=== PATIENT | male | born 1980 | race Caucasian/White ===

== ENCOUNTER → 2016-10-07 | Outpatient (REF) | payer OTHER | LOC: M SFHCCLAY 10:36 | PROVIDERS: ATTEND Family Medicine | DX: L02.91 Cutaneous abscess, unspecified (principal) ==

== ENCOUNTER 2017-04-26 00:04 | Emergency (ER) | payer OTHER | END 2017-04-26 01:32 | disposition home or self-care (01) | LOC: M ED 00:04 | DX: F10.220 Alcohol dependence with intoxication, uncomplicated (principal); K21.9 Gastro-esophageal reflux disease without esophagitis; F41.9 Anxiety disorder, unspecified; Z87.891 Personal history of nicotine dependence; Z79.899 Other long term (current) drug therapy | CPT/HCPCS: 99284 ==

== ENCOUNTER → 2018-03-30 | Outpatient (REF) | payer OTHER ==
[~2018-03-30] MED LIST: DIPH25CA PO; OMEP20CA3; SERT-138
[2018-03-30 11:56] LABS: ALBUMIN 4.2 GM/DL (3.2-5.2); ALT/SGPT 162 U/L (12-78); BILIRUBIN,TOTAL 1.3 MG/DL (0.2-1.0); BLOOD UREA NITROGEN 16 MG/DL (7-18); CALCIUM LEVEL 9.5 MG/DL (8.5-10.1); CARBON DIOXIDE LEVEL 30 MEQ/L (21-32); CHLORIDE LEVEL 102 MEQ/L (98-107); CHOLESTEROL LEVEL 210 MG/DL (<200); CREATININE FOR GFR 1.05 MG/DL (0.70-1.30); GLOMERULAR FILTRATION RATE > 60.0 (>60); GLUCOSE, FASTING 123 MG/DL (70-100); HDL CHOLESTEROL 50 MG/DL (>40); LDL CHOLESTEROL 139 MG/DL (<100); NON-HDL-C 160 MG/DL; POTASSIUM SERUM 4.5 MEQ/L (3.5-5.1); SODIUM LEVEL 139 MEQ/L (136-145); TOTAL PROTEIN 7.8 GM/DL (6.4-8.2); TRIGLYCERIDES LEVEL 106 MG/DL (<150)
== END ==
LOC: M SFHCCLAY 08:15
PROVIDERS: ATTEND Family Medicine
DX: Z00.01 Encounter for general adult medical examination with abnormal findings (principal); Z13.220 Encounter for screening for lipoid disorders; Z13.1 Encounter for screening for diabetes mellitus

== ENCOUNTER → 2018-03-31 | Outpatient (REF) | payer OTHER ==
[2018-04-01 11:27] LABS: HEMATOCRIT 48.9 % (42.0-52.0); HEMOGLOBIN 17.2 g/dl (13.5-17.5); MEAN CORPUSCULAR HEMOGLOBIN 31.7 pg (27.0-33.0); MEAN CORPUSCULAR HGB CONC 35.2 g/dl (32.0-36.5); MEAN CORPUSCULAR VOLUME 90.1 fl (80.0-96.0); PLATELET COUNT, AUTOMATED 226 10^3/uL (150-450); RED BLOOD COUNT 5.43 10^6/uL (4.30-6.10); WHITE BLOOD COUNT 5.1 10^3/uL (4.0-10.0)
[2018-04-01 11:30] LABS: ALBUMIN 4.5 GM/DL (3.2-5.2); ALT/SGPT 154 U/L (12-78); BILIRUBIN,DIRECT 0.3 MG/DL (0.0-0.2); BILIRUBIN,TOTAL 1.1 MG/DL (0.2-1.0); IRON (FE) 110 UG/DL (65-175); PERCENT SATURATION 23.5 % (19.7-50.0); TOTAL IRON BINDING CAPACITY 469 UG/DL (250-450); TOTAL PROTEIN 7.9 GM/DL (6.4-8.2)
[2018-04-01 11:47] LABS: HEMOGLOBIN A1c 5.6 %
[2018-04-01 11:52] LABS: HEPATITIS B SURFACE ANTIGEN NEGATIVE (NEGATIVE)
[2018-04-01 12:19] LABS: HEPATITIS C VIRUS ABY INDEX 0.1 INDEX (<0.8)
[2018-04-01 12:20] LABS: HEPATITIS B CORE ANTIBODY IGM NEGATIVE (NEGATIVE)
[2018-04-01 12:22] LABS: HEPATITIS A ANTIBODY IGM NEGATIVE (NEGATIVE)
== END ==
LOC: M SFHCCLAY 14:58
PROVIDERS: ATTEND Family Medicine
DX: R73.01 Impaired fasting glucose (principal); R74.8 Abnormal levels of other serum enzymes

== ENCOUNTER 2018-06-19 22:52 | Emergency (ER) | payer OTHER ==
[~2018-06-19] VITALS: Ht 185.4 cm; Wt 121.0 kg
[2018-06-19] MEDS ORDERED: KETOROLAC 30 MG/ML VIAL (J1885) IV ONE (23:30)
[2018-06-19] MEDS ORDERED: NS 1,000 ML IV ONE (23:30)
[2018-06-19 23:55] LABS: BASO # 0.1 10^3/uL (0.0-0.2); BASO % 1.1 % (0.0-1.0); EOS # 0.2 10^3/uL (0.0-0.50); EOS % 4.3 % (0.0-3.0); HEMATOCRIT 45.9 % (42.0-52.0); HEMOGLOBIN 16.2 g/dl (13.5-17.5); LYMPH # 0.9 10^3/uL (1.5-4.5); LYMPH % 19.6 % (24.0-44.0); MEAN CORPUSCULAR HEMOGLOBIN 31.4 pg (27.0-33.0); MEAN CORPUSCULAR HGB CONC 35.3 g/dl (32.0-36.5); MONO # 0.7 10^3/uL (0.0-0.8); MONO % 14.9 % (0.0-5.0); NEUTROPHILS # 2.5 10^3/uL (1.8-7.7); PLATELET COUNT, AUTOMATED 140 10^3/uL (150-450); RED BLOOD COUNT 5.16 10^6/uL (4.30-6.10); WHITE BLOOD COUNT 4.4 10^3/uL (4.0-10.0)
[2018-06-20 00:21] LABS: BLOOD UREA NITROGEN 7 MG/DL (7-18); CALCIUM LEVEL 8.5 MG/DL (8.5-10.1); CARBON DIOXIDE LEVEL 27 MEQ/L (21-32); CHLORIDE LEVEL 101 MEQ/L (98-107); CPK CREATINE PHOSPHOKINASE 275 U/L (39-308); CREATININE FOR GFR 0.72 MG/DL (0.70-1.30); ETHYL ALCOHOL (ETHANOL) 0.294 % (0.000-0.010); GLOMERULAR FILTRATION RATE > 60.0 (>60); GLUCOSE, FASTING 90 MG/DL (70-100); MB/CK RELATIVE INDEX 1.45 (< OR =4); POTASSIUM SERUM 3.7 MEQ/L (3.5-5.1); SODIUM LEVEL 136 MEQ/L (136-145); TROPONIN I < 0.02 NG/ML (< 0.10)
[2018-06-20] MEDS ORDERED: CYCL5TAB PO (01:43)
[2018-06-20] MEDS ORDERED: NAPR-50 PO (01:43)
[2018-06-20 01:56] VITALS: BP 113/59
--- NOTE | 2018-06-20 03:52 | REP ---
Clinical: Acute chest pain . Comparison: None . Findings: The mediastinum and cardiac silhouette are stable and within normal limits for portable technique. The lung canseco are clear without acute consolidation, effusion, or pneumothorax. Skeletal structures are intact. Impression: No acute cardiopulmonary process appreciated. Electronically Signed by Logan Chandler MD 06/20/2018 03:43 A
--- NOTE | 2018-06-20 06:33 | ECGEPIP ---
Stationary ECG Study [facility] - ED Test Date: 2018-06-19 Pat Name: MELANIE REYES Department: Room: - Gender: M [employer] Analyst: [place] : 1980 Requested By: MARIA GUADALUPE Jha Order Number: [id number] Reading MD: Jude Mckeon Measurements Intervals Lerna Rate: 72 P: -7 KS: 183 QRS: -11 QRSD: 109 T: -4 QT: 419 QTc: 459 Interpretive Statements SINUS RHYTHM NO PRIORS FOR COMPARISON Electronically Signed On 06-20-2018 6:33:18 EDT by Jude Mckeon
== END 2018-06-20 01:58 | disposition home or self-care (01) ==
LOC: M ED 22:52
DX: R07.89 Other chest pain (principal); M54.9 Dorsalgia, unspecified; F10.129 Alcohol abuse with intoxication, unspecified; R06.02 Shortness of breath
CPT/HCPCS: 36415; 71045; 80048; 82550; 82553; 85025; 93005; 93041; 94760; 96361; 96374; 99285; G0480; J1885

== ENCOUNTER → 2018-07-15 | Outpatient (REF) | payer OTHER ==
[~2018-07-15] MED LIST changes: +CYCL5TAB PO; +NAPR-837 PO
[2018-07-15 18:03] LABS: APPEARANCE, URINE CLEAR (CLEAR); BACTERIA, URINE AUTO NEGATIVE (NEGATIVE); BILIRUBIN, URINE AUTO NEGATIVE (NEGATIVE); BLOOD, URINE BLOOD NEGATIVE (NEGATIVE); COLOR, URINE STRAW (YELLOW); GLUCOSE, URINE (UA) AUTO NEGATIVE (NEGATIVE); KETONE, URINE AUTO NEGATIVE (NEGATIVE); LEUKOCYTE ESTERASE, URINE AUTO NEGATIVE (NEGATIVE); NITRITE, URINE AUTO NEGATIVE (NEGATIVE); PROTEIN, URINE AUTO NEGATIVE (NEGATIVE); RBC, URINE AUTO 0 /HPF (0-3); SPECIFIC GRAVITY URINE AUTO 1.003 (1.002-1.035); SQUAMOUS EPITHELIAL CELL UR AU 0 /HPF (0-6); UROBILINOGEN, URINE AUTO 0.2 mg/dL (0.0-2.0); WBC, URINE AUTO 0 /HPF (0-3)
[2018-07-15 18:12] LABS: BASO % 0.9 % (0.0-1.0); EOS # 0.1 10^3/uL (0.0-0.50); EOS % 2.8 % (0.0-3.0); HEMATOCRIT 46.9 % (42.0-52.0); HEMOGLOBIN 16.3 g/dl (13.5-17.5); LYMPH # 0.5 10^3/uL (1.5-4.5); LYMPH % 11.2 % (24.0-44.0); MEAN CORPUSCULAR HEMOGLOBIN 31.2 pg (27.0-33.0); MEAN CORPUSCULAR HGB CONC 34.8 g/dl (32.0-36.5); MEAN CORPUSCULAR VOLUME 89.7 fl (80.0-96.0); MONO # 0.5 10^3/uL (0.0-0.8); MONO % 12.4 % (0.0-5.0); NEUTROPHILS % 68.8 % (36.0-66.0); PLATELET COUNT, AUTOMATED 178 10^3/uL (150-450); RED BLOOD COUNT 5.23 10^6/uL (4.30-6.10); WHITE BLOOD COUNT 4.4 10^3/uL (4.0-10.0)
[2018-07-15 18:45] LABS: ALBUMIN 4.3 GM/DL (3.2-5.2); ALT/SGPT 207 U/L (12-78); BILIRUBIN,TOTAL 1.2 MG/DL (0.2-1.0); BLOOD UREA NITROGEN 12 MG/DL (7-18); CALCIUM LEVEL 9.3 MG/DL (8.5-10.1); CARBON DIOXIDE LEVEL 27 MEQ/L (21-32); CHLORIDE LEVEL 102 MEQ/L (98-107); CREATININE FOR GFR 0.84 MG/DL (0.70-1.30); GLOMERULAR FILTRATION RATE > 60.0 (>60); GLUCOSE, FASTING 102 MG/DL (70-100); POTASSIUM SERUM 4.3 MEQ/L (3.5-5.1); SODIUM LEVEL 138 MEQ/L (136-145); TOTAL PROTEIN 7.9 GM/DL (6.4-8.2)
[2018-07-15 18:52] LABS: FREE T4 0.64 NG/DL (0.76-1.46); THYROID STIMULATING HORMONE 1.93 uIU/ML (0.358-3.740)
[2018-07-15 19:31] LABS: HIV 1&2 SCREEN CENTAUR NEGATIVE (NEGATIVE)
== END ==
LOC: M SFHCCLAY 10:35
PROVIDERS: ATTEND Family Medicine
DX: R59.0 Localized enlarged lymph nodes (principal)

== ENCOUNTER → 2018-07-29 | Outpatient (CLI) | payer OTHER ==
[~2018-07-29] MED LIST changes: +ACAM0.05 PO; +LABE10TAB PO
[2018-07-29 19:10] LABS: INR 0.92; PROTHROMBIN TIME 12.5 SECONDS (12.1-14.4)
[2018-08-02 00:08] LABS: ANTI-SMOOTH MUSCLE ANTIBODY 15 Units (0-19)
[2018-08-02 14:14] LABS: CERULOPLASMIN 27.5 mg/dL (16.0-31.0)
== END ==
LOC: M SMT 14:18
PROVIDERS: ATTEND Internal Medicine Pulmonary Disease
DX: R59.0 Localized enlarged lymph nodes (principal)

== ENCOUNTER 2018-08-09 08:50 | Day surgery (SDC) | payer OTHER ==
[~2018-08-09] VITALS: Ht 188 cm; Wt 116.9 kg
[~2018-08-09 08:50] MED LIST changes: +ALBUTEROL SULFATE 2.5 MG/0.5 ML INH NEB SOLN NEB ONE; +D5W 1,000 ML IV SCH; +LIDOCAINE 4% INJ 5 ML AMP NEB ONE
[2018-08-09] MEDS ORDERED: THROMBIN SOLN 5,000 UNITS VIAL As Ordered ONE (09:49)
[2018-08-09] MEDS ORDERED: EPINEPHrine 1MG/10ML SYRINGE 1.5IN As Ordered ONE (09:50)
[2018-08-09] MEDS ORDERED: LIDOCAINE 1% MDV 20ML VIAL As Ordered ONE (09:50)
[2018-08-09] MEDS ORDERED: CETACAINE SPRAY 5GM As Ordered ONE (09:50)
[2018-08-09] MEDS ORDERED: LIDOCAINE VISCOUS 2% SOLN 15ML UDC As Ordered ONE (09:50)
[2018-08-09] MEDS ORDERED: LIDOCAINE 4% TOPICAL SOLN 50 ML BTL As Ordered ONE (10:10)
[2018-08-09] MEDS ORDERED: PROPOFOL 200 MG/20 ML VIAL As Ordered ONE (10:59)
[2018-08-09] MEDS ORDERED: MIDAZOLAM INJ 2 MG/2 ML VIAL (J2250) As Ordered ONE (10:59)
[2018-08-09] MEDS ORDERED: SUGAMMADEX SODIUM 500 MG/5 ML VIAL (BRIDION) As Ordered ONE (10:59)
[2018-08-09] MEDS ORDERED: fentaNYL 100 MCG/2 ML INJECTION (J3010) As Ordered ONE (10:59)
[2018-08-09] MEDS ORDERED: ONDANSETRON 4MG/2ML VIAL (J2405) As Ordered ONE (10:59)
[2018-08-09] MEDS ORDERED: ROCURONIUM BROMIDE 50 MG/5 ML VIAL As Ordered ONE (10:59)
[2018-08-09] MEDS ORDERED: dexameTHASONE 4 MG/ML 1ML VIAL (J1100) As Ordered ONE (10:59)
[2018-08-09] MEDS ORDERED: METOCLOPRAMIDE INJ 10MG/2ML VIAL (J2765) As Ordered ONE (11:56)
[2018-08-09] MEDS ORDERED: METOCLOPRAMIDE INJ 10MG/2ML VIAL (J2765) IV PRN (12:00)
[2018-08-09] MEDS ORDERED: fentaNYL 100 MCG/2 ML INJECTION (J3010) IV PRN (12:00)
[2018-08-09] MEDS ORDERED: NORCO, ANEXSIA 5/325MG TABLET (HYDROcodone/ACETAMINOPHEN) PO PRN (12:00)
--- NOTE | 2018-08-09 12:02 | ROOR ---
Patient Name: Coy Hernandez Procedure Date: 08/09/2018 10:08 AM Date of : 1980 Admit Type: Outpatient Age: 38 Note Status: Finalized Attending MD: Monse Denise MD Procedure: Bronchoscopy Indications: Bilateral hilar lymphadenopathy, Mediastinal adenopathy, Paratracheal adenopathy Providers: Monse Denise MD (Doctor) Referring MD: 1. No Referring Physician 1. No Referring Physician, Admin. (Referring MD) Requesting Physician: Medicines: General Anesthesia, Cetacaine topical Complications: No immediate complications Procedure: Pre-Anesthesia Assessment: - Prior to the procedure, a History and Physical was performed, and patient medications and allergies were reviewed. The patient's tolerance of previous anesthesia was also reviewed. The risks and benefits of the procedure and the sedation options and risks were discussed with the patient. All questions were answered, and informed consent was obtained. Prior Anticoagulants: The patient has taken no previous anticoagulant or antiplatelet agents. ASA Grade Assessment: II - A patient with mild systemic disease. After reviewing the risks and benefits, the patient was deemed in satisfactory condition to undergo the procedure. The Bronchoscope was introduced through the mouth, via the endotracheal tube (the patient was intubated for the procedure) and advanced to the tracheobronchial tree of both lungs. The procedure was accomplished without difficulty. The patient tolerated the procedure well. Findings: The endotracheal tube is in good position. The visualized portion of the trachea is of normal caliber. The aleksander is sharp. The tracheobronchial tree was examined to at least the first subsegmental level. In the left upper lobe patient had seperate apical, anterior and posterior bronchial segments. In the right upper lobe patient had an anatomical variant with displaced apical bronchus vs supernumerary apical bronchus. Bronchial mucosa was normal; there were few areas of pitting, no endobronchial lesions were seen, and very scant secretions. An endobronchial ultrasound endoscope was utilized in order to assist with fine needle aspiration in the left and right paratracheal and subcarinal areas. Transbronchial needle aspirations of lymph nodes were performed in the left and right paratracheal and subcarinal areas using an Olympus EBUS-TBNA 21 gauge needle and sent for routine cytology and flow cytometry. The procedure was guided by ultrasound. Bronchoalveolar lavage was performed in the left upper lobe, in the right upper lobe and in the right lower lobe of the lung and sent for cell count, bacterial culture, and fungal & AFB analysis and cytology. The return was blood-tinged. There were no mucoid plugs in the return fluid. Impression: - Bilateral hilar lymphadenopathy - Mediastinal adenopathy - Paratracheal adenopathy - The airway examination was normal except for noted anatomical variations in RUL and CLAUDIA segmental bronchi. - Endobronchial ultrasound was performed. - A transbronchial needle aspiration was performed in subcarinal, right and left paratracheal lymph nodes - Bronchoalveolar lavage was performed in RUL, RLL and CLAUDIA Recommendation: - Follow up with bronchoscopist as previously scheduled. Attending Participation: I personally performed the entire procedure. Monse Denise MD 08/09/2018 12:01:59 PM Number of Addenda: 0 Note Initiated On: 08/09/2018 10:08 AM
[2018-08-09 12:24] VITALS: BP 133/88
--- NOTE | 2018-08-09 12:39 | REP ---
PORTABLE CHEST X-RAY: Single view. HISTORY: Postop evaluation. COMPARISON CHEST X-RAY: June 19, 2018. FINDINGS: There are linear opacities in the right perihilar region and left base consistent with fibrosis versus atelectasis. There is no evidence of pneumothorax on either side. No pleural effusion is seen. The heart is not enlarged. Mediastinal contours are unremarkable. IMPRESSION: Plate-like atelectasis versus linear fibrosis left base and right perihilar region. No evidence of pneumothorax. Electronically Signed by Jesus Rojas MD 08/09/2018 10:26 P
[2018-08-09 13:45] LABS: APPEARANCE CLEAR (CLEAR); COLOR COLORLESS (COLORLESS); SOURCE LEFT UPPER LOBE
[2018-08-09 14:21] LABS: APPEARANCE HAZY (CLEAR); COLOR PINK (COLORLESS); SOURCE RIGHT UPPER LOBE
== END 2018-08-09 12:50 | disposition home or self-care (01) ==
LOC: M SDC 08:50
PROVIDERS: ATTEND Internal Medicine Pulmonary Disease
DX: R91.8 Other nonspecific abnormal finding of lung field (principal); R59.0 Localized enlarged lymph nodes; I10 Essential (primary) hypertension; K21.9 Gastro-esophageal reflux disease without esophagitis; F41.9 Anxiety disorder, unspecified; F32.9 Major depressive disorder, single episode, unspecified; Z87.891 Personal history of nicotine dependence; K76.0 Fatty (change of) liver, not elsewhere classified; Z79.899 Other long term (current) drug therapy; R94.8 Abnormal results of function studies of other organs and systems
CPT/HCPCS: 31624; 31629; 31652; 71045; 87070; 87102; 87116; 87205; 87206; 88108; 88173; 88305; 88312; 88313; 89050; J1100; J2250; J2405; J3010

== ENCOUNTER 2018-11-04 11:49 | Day surgery (SDC) | payer OTHER ==
[~2018-11-04] VITALS: Ht 188 cm; Wt 119.3 kg
[~2018-11-04 11:49] MED LIST changes: -ALBUTEROL SULFATE 2.5 MG/0.5 ML INH NEB SOLN NEB ONE; -D5W 1,000 ML IV SCH; -DIPH25CA PO; +DIPH25CA32 PO; -LIDOCAINE 4% INJ 5 ML AMP NEB ONE; +NS 1,000 ML IV ONE; +OMEP1CAP73; -OMEP20CA3; +PRED20TA PO
[2018-11-04] MEDS ORDERED: NS 1,000 ML IV ONE (12:30)
[2018-11-04] MEDS ORDERED: LIDOCAINE 2% INJ 100 MG/5 ML SDV (FOR ANES.) As Ordered ONE (13:19)
[2018-11-04] MEDS ORDERED: propofoL 200 MG/20 ML VIAL As Ordered ONE ×2 (13:19→13:28)
--- NOTE | 2018-11-04 13:50 | ROOR ---
Patient Name: Coy Hernandez Procedure Date: 11/04/2018 1:17 PM Date of : 1980 Age: 38 Room: [facility] Gender: Male Note Status: Finalized Procedure: Upper GI endoscopy Indications: Suspected gastro-esophageal reflux disease Providers: Urbano Bass MD Referring MD: Laurie BUTT DO Requesting Provider: Medicines: Monitored Anesthesia Care Complications: No immediate complications. Procedure: Pre-Anesthesia Assessment: - Prior to the procedure, a History and Physical was performed, and patient medications and allergies were reviewed. The patient is competent. The risks and benefits of the procedure and the sedation options and risks were discussed with the patient. All questions were answered and informed consent was obtained. Patient identification and proposed procedure were verified by the physician, the nurse and the anesthesiologist in the procedure room. Mental Status Examination: alert and oriented. Airway Examination: normal oropharyngeal airway and neck mobility. Respiratory Examination: clear to auscultation. CV Examination: normal. Prophylactic Antibiotics: The patient does not require prophylactic antibiotics. Prior Anticoagulants: The patient has taken no previous anticoagulant or antiplatelet agents. ASA Grade Assessment: II - A patient with mild systemic disease. After reviewing the risks and benefits, the patient was deemed in satisfactory condition to undergo the procedure. The anesthesia plan was to use monitored anesthesia care (MAC). Immediately prior to administration of medications, the patient was re-assessed for adequacy to receive sedatives. The heart rate, respiratory rate, oxygen saturations, blood pressure, adequacy of pulmonary ventilation, and response to care were monitored throughout the procedure. The physical status of the patient was re-assessed after the procedure. The Endoscope was introduced through the mouth, and advanced to the second part of duodenum. The upper GI endoscopy was accomplished without difficulty. The patient tolerated the procedure well. Findings: LA Grade A (one or more mucosal breaks less than 5 mm, not extending between tops of 2 mucosal folds) esophagitis with no bleeding was found 38 to 40 cm from the incisors. Biopsies were taken with a cold forceps for histology. Verification of patient identification for the specimen was done by the physician and nurse using the patient's name, date and medical record number. Estimated blood loss was minimal. The Z-line was irregular and was found 40 cm from the incisors. Scattered moderate inflammation characterized by erythema and granularity was found in the gastric antrum. Biopsies were taken with a cold forceps for Helicobacter pylori testing. Multiple 8 mm sessile polyps with no stigmata of recent bleeding were found in the gastric body and in the gastric antrum. The duodenal bulb and second portion of the duodenum were normal. Impression: - LA Grade A reflux esophagitis. Rule out Kraus's esophagus. Biopsied. - Z-line irregular, 40 cm from the incisors. - Gastritis. Biopsied. - Multiple gastric polyps. - Normal duodenal bulb and second portion of the duodenum. Recommendation: - Patient has a contact number available for emergencies. The signs and symptoms of potential delayed complications were discussed with the patient. Return to normal activities tomorrow. Written discharge instructions were provided to the patient. - Resume previous diet. - Continue present medications. - Await pathology results. - Repeat upper endoscopy in 3 years for surveillance based on pathology results. - Follow an antireflux regimen. - Telephone GI clinic for pathology results in 2 weeks. - Return to primary care physician. Urbano Bass MD Urbano Bass MD 11/04/2018 1:49:58 PM Electronically signed by Urbano Bass MD Number of Addenda: 0 Note Initiated On: 11/04/2018 1:17 PM Estimated Blood Loss: Estimated blood loss was minimal.
[2018-11-04 14:00] VITALS: BP 128/69
== END 2018-11-04 14:11 | disposition home or self-care (01) ==
LOC: M OPP 11:49
PROVIDERS: ATTEND Internal Medicine Gastroenterology
DX: K21.0 Gastro-esophageal reflux disease with esophagitis (principal); K22.8 Other specified diseases of esophagus; K29.70 Gastritis, unspecified, without bleeding; K31.7 Polyp of stomach and duodenum

== ENCOUNTER 2019-04-28 21:46 | Inpatient (IN) | payer MEDICAID, OTHER ==
[~2019-04-28] VITALS: Ht 188 cm; Wt 120.5 kg
[~2019-04-28 21:46] MED LIST changes: -NS 1,000 ML IV ONE; -SERT-138; +SERT-138 PO
[2019-04-28 23:13] LABS: HEMATOCRIT 55.7 % (42.0-52.0); HEMOGLOBIN 17.8 g/dl (13.5-17.5); MEAN CORPUSCULAR HEMOGLOBIN 28.1 pg (27.0-33.0); PLATELET COUNT, AUTOMATED 211 10^3/uL (150-450); RED BLOOD COUNT 6.33 10^6/uL (4.30-6.10); WHITE BLOOD COUNT 5.8 10^3/uL (4.0-10.0)
[2019-04-28 23:37] LABS: AMPHETAMINES LEVEL URINE NEGATIVE (NEGATIVE); BARBITURATES URINE NEGATIVE (NEGATIVE); BENZODIAZEPINES URINE NEGATIVE (NEGATIVE); CANNABINOIDS URINE NEGATIVE (NEGATIVE); COCAINE METABOLITE URINE NEGATIVE (NEGATIVE); METHADONE URINE NEGATIVE (NEGATIVE); OPIATES URINE NEGATIVE (NEGATIVE); PHENCYCLIDINE URINE NEGATIVE (NEGATIVE)
[2019-04-29 00:02] LABS: ACETAMINOPHEN LEVEL < 2.0 UG/ML (10.0-30.0); ALBUMIN 4.6 GM/DL (3.2-5.2); ALT/SGPT 57 U/L (12-78); BILIRUBIN,DIRECT 0.4 MG/DL (0.0-0.2); BILIRUBIN,TOTAL 1.2 MG/DL (0.2-1.0); BLOOD UREA NITROGEN 6 MG/DL (7-18); CALCIUM LEVEL 8.8 MG/DL (8.5-10.1); CARBON DIOXIDE LEVEL 29 MEQ/L (21-32); CHLORIDE LEVEL 99 MEQ/L (98-107); CREATININE FOR GFR 0.77 MG/DL (0.70-1.30); ETHYL ALCOHOL (ETHANOL) 0.304 % (0.000-0.010); GLOMERULAR FILTRATION RATE > 60.0 (>60); GLUCOSE, FASTING 84 MG/DL (70-100); POTASSIUM SERUM 3.8 MEQ/L (3.5-5.1); SALICYLATE LEVEL 2.4 MG/DL (5.0-30.0); SODIUM LEVEL 135 MEQ/L (136-145); TOTAL PROTEIN 8.6 GM/DL (6.4-8.2)
[2019-04-29] MEDS ORDERED: THIAMINE 100 MG TAB PO SCH ×2 (09:00→21:00)
[2019-04-29] MEDS ORDERED: FOLIC ACID 1 MG TAB PO SCH (09:00)
[2019-04-29] MEDS ORDERED: MULTIVITAMINS/MINERALS THERAP 1 TAB PO SCH (09:00)
[2019-04-29] MEDS ORDERED: IBUPROFEN 400 MG TAB PO PRN (10:45)
[2019-04-29] MEDS ORDERED: traZODone 50 MG TAB PO PRN (10:45)
[2019-04-29] MEDS ORDERED: MAALOX 30 ML SUSP *UDC PO PRN ×2 (10:45→11:00)
[2019-04-29] MEDS ORDERED: MOM 30ML SUSPENSION UDC PO PRN ×2 (10:45→11:00)
[2019-04-29] MEDS ORDERED: LORazepam 2 MG TAB PO PRN ×2 (10:45)
[2019-04-29] MEDS ORDERED: HYDR-643 PO (11:25)
[2019-04-29] MEDS ORDERED: OMEP-221 PO (11:25)
[2019-04-29] MEDS: OMEPRAZOLE 20 MG CAP PO SCH ×2 (14:52→20:00)
[2019-04-29 15:45] VITALS: BP 165/100
[2019-04-29] MEDS: LORazepam 2 MG TAB PO PRN (16:02)
[2019-04-29 17:02] VITALS: BP 148/88
[2019-04-29 17:50] VITALS: BP 148/88
[2019-04-29 19:43] VITALS: BP 165/110
[2019-04-29] MEDS: THIAMINE 100 MG TAB PO SCH (20:00)
[2019-04-29] MEDS: LABETALOL 100 MG TAB PO SCH (20:00)
[2019-04-29] MEDS ORDERED: SERTRALINE 100 MG TAB PO SCH (21:00)
[2019-04-29] MEDS: traZODone 50 MG TAB PO PRN (21:18)
[2019-04-29 22:27] VITALS: BP 140/85
--- NOTE | 2019-04-29 22:32 | MHHPE ---
DATE OF ADMISSION: 04/29/2019 VITAL SIGNS: Blood pressure 148/88, pulse 100, temperature 99. CHIEF COMPLAINT: Feels depressed. SUBJECTIVE: He is 38 years old. He is . He and his are possibly going to divorce. They have four children. He has recently been staying with his parents. He has been depressed, increasingly so since the separation a few months ago, has bene increasingly distressed. Has difficulties with drinking, considerably so. Saybetsy attended rehabilitation in [place] in March, was there for about a month, [facility] as his [facility] lives there. He did not have any withdrawal symptoms from alcohol. He says that he has not had any to speak of in the past either. He says that he was okay for about a week and then felt anxious, picked up drinking again, and that pattern continued, including over and the New Year, intensified last few weeks to the point where he has been drinking first thing in the morning. He says that he does not think that he has had black outs. He has been feeling increasingly depressed and despondent, and says felt hopeless and yesterday thought of taking his own life. He says that he had been drinking at the time, had a rope around the rafter, says had a chair in place and was getting ready essentially to hang himself when his father walked in. He says that he was going to ask him for dinner, when he saw the patient in that state. The patient was brought to the hospital. He says that he remembers the journey, did not lose any consciousness, did not in fact have the rope around his neck. He says that he began thinking of his children, and wishes to continue for them. He has been feeling depressed. Says was less so when he was in rehab for about a month. Prior to that, says was free of alcohol for about 2 months, some time in the late summer, did not have a depressed mood but was anhedonic. Did not have much interest in previously pleasurable activities. Sleep was a bit erratic. No history consistent with hypomania, sujata, obsessions or compulsions. No posttraumatic stress disorder (PTSD). 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 No flashbacks. Says had difficulties with alcohol for several years, at least in his 20s, and that has continued. He has been on sertraline at 100 mg daily, prescribed by primary care, has been on this for quite a while and says was put on Campral when he was in [place] at rehab, but on 333 mg three times a day rather than the usual dose, which is double that. He said that it was something to do with insurance. He was due to increase it on his own recently. No history, as far as I am aware, of any suicide attempts. SUBSTANCE ABUSE HISTORY: As indicated above, has had a long period of difficulties with alcohol. Has been to rehab on two occasions, one was at [facility], this was when he was in his late 20s, says did not like the experience, left after about 16 days or so. The second rehab was the one he attended recently in [place]. MEDICAL HISTORY: He is treated for high blood pressure and is on labetalol. SOCIAL HISTORY: He lives with his parents, this is only since the last few months, after his separation from his . He and his have been together since their teens. The patient did not give any history of any abuse when growing up. 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 He says that he has been looking for work. He and his about 7 months ago, they have been together for the better part of their lives. He says that his drinking has consistently interfered with his marriage and his ability to work, particularly lately. He has been living with his parents, the past few months, and he increasingly considers himself a burden there. He says that this contributed to his thinking of killing himself. MENTAL STATUS EXAMINATION: He is neat. He is cooperative. Appears well nourished. There is no agitation. No psychomotor retardation. He is coherent. Affect is restricted in range but shows reactivity. He is vague on suicidal thoughts, no firm plans. No homicidal ideas or intents. No evidence of psychosis. Cognition is grossly intact. Judgment and insight are questionable. ASSESSMENT: 1. Other specified depressive disorder. 2. Rule out alcohol induced depressive disorder. 3. Alcohol use disorder. 4. Separation from . He has been significantly depressed, this is exacerbated by his use of alcohol. It seems that the depressed mood, clinically significant, pervades including when he is not drinking. PLAN: He is admitted to the inpatient psychiatry unit. We will place him on relevant precautions, including the Clinical [place] Withdrawal Assessment (CIWA) scale. After discussion of the advantages and disadvantages of doing so and alternatives, including switching antidepressants, his Zoloft is increased to 150 mg daily, I would suggest putting him on a sleep aid if needed. We will resume Campral but at 666 mg three times a day, which is the usual dose. He will be involved in individual, group and milieu therapy. We will look at obtaining collateral information. He will be discharged with followup once he is stable. I anticipate a 5 to 7 day stay. We met for 60 minutes.
[2019-04-30 06:16] VITALS: BP 125/90
[2019-04-30 06:17] VITALS: BP 125/90
[2019-04-30 09:00] VITALS: BP 136/84
[2019-04-30] MEDS ORDERED: FOLIC ACID 1 MG TAB PO SCH (09:00)
[2019-04-30] MEDS ORDERED: MULTIVITAMINS/MINERALS THERAP 1 TAB PO SCH (09:00)
[2019-04-30] MEDS: FOLIC ACID 1 MG TAB PO SCH (09:15)
[2019-04-30] MEDS: THIAMINE 100 MG TAB PO SCH ×2 (09:15→20:14)
[2019-04-30] MEDS: OMEPRAZOLE 20 MG CAP PO SCH ×2 (09:15→20:15)
[2019-04-30] MEDS: SERTRALINE HCL 50 MG TAB PO SCH (09:16)
[2019-04-30] MEDS: MULTIVITAMINS/MINERALS THERAP 1 TAB PO SCH (09:17)
[2019-04-30] MEDS: LABETALOL 100 MG TAB PO SCH ×2 (09:17→20:15)
[2019-04-30] MEDS: LORazepam 2 MG TAB PO PRN (09:20)
[2019-04-30] MEDS: ACAMPROSATE CALCIUM 333 MG TABLET (CAMPRAL) PO SCH ×3 (12:03→20:15)
--- NOTE | 2019-04-30 12:29 | HPEPDOC ---
[facility] Medical History & Physical Date of Admission Apr 30, 2019 Date of Service: Apr 30, 2019 History and Physical CHIEF COMPLAINT: Hospitalist consult for medical co-management. HISTORY OF PRESENT ILLNESS: 38 yo male admitted to [facility] for depressive disorder. Patient has no medical complaints this morning. Denies chest pain, shortness of breath, headaches, changes in vision, abdominal pain, N/V/D. PAST MEDICAL HISTORY: #HTN #EtOH abuse ALLERGIES: Please see below. REVIEW OF SYSTEMS: Negative except as per HPI. HOME MEDICATIONS: Please see below. PHYSICAL EXAMINATION: Vital Signs: See below General: NAD HEENT: NC/AT, EOMI, PERRL Lungs: CTA B/L Heart: +S1S2, RRR Abd: soft, NT, +BS Ext: no edema Neuro: no gross focal deficits Psych: AAOx3 LABORATORY DATA: See below. MICROBIOLOGY: Please see below. ASSESSMENT: 38 yo male admitted to [facility] for depressive disorder, medicine consult for co-management. #HTN - patient states he has been prescribed labetalol for some time - will continue #EtOH abuse - as per psych - monitor for withdrawal - folic/thiamine supplements #hyponatremia - repeat labs in am #polycythemia - repeat labs in am #hyperbilirubinemia - follow up liver profile in am Dispo: follow up with labs in am PLAN: 1. . Vital Signs Vital Signs Date Time Temp Pulse Resp B/P (MAP) Pulse Ox O2 Delivery O2 Flow Rate FiO2 04/30/19 09:17 90 136/84 04/30/19 06:17 99.2 16 04/29/19 17:50 100 Room Air Home Medications Scheduled Acamprosate Calcium (Acamprosate Calcium) 333 Mg Tablet.dr, 333 MG PO TID Labetalol HCl (Labetalol HCl) 100 Mg Tablet, 100 MG PO BID Omeprazole (Omeprazole) 40 Mg Capsule.dr, 40 MG PO DAILY Sertraline HCl (Sertraline HCl) 100 Mg Tab, 100 MG PO QHS Scheduled PRN Diphenhydramine HCl (Diphenhydramine HCl) 25 Mg Cap, 25 MG PO Q6H PRN for ITCHING Hydroxyzine HCl (Hydroxyzine HCl) 10 Mg Tablet, 10 MG PO TID PRN for ANXIETY/AGITATION Allergies Coded Allergies: No Known Allergies (Unverified , NONE, 06/19/18) A-FIB/CHADSVASC A-FIB History Current/History of A-Fib/PAF?: No CHERYLE CAVAZOS MD Apr 30, 2019 12:29
[2019-04-30 14:00] VITALS: BP 134/80
[2019-04-30] MEDS: POLYVINYL ALCOHOL OPHTH SOLN 15 ML(LIQUITEARS) OU PRN (14:11)
[2019-04-30 16:06] VITALS: BP 147/87
[2019-04-30] MEDS: traZODone 50 MG TAB PO PRN (20:15)
[2019-05-01] VITALS: BP 142/90
[2019-05-01 06:21] VITALS: BP 135/98
[2019-05-01] MEDS: THIAMINE 100 MG TAB PO SCH ×2 (08:27→20:42)
[2019-05-01] MEDS: FOLIC ACID 1 MG TAB PO SCH (08:27)
[2019-05-01] MEDS: OMEPRAZOLE 20 MG CAP PO SCH ×2 (08:27→20:42)
[2019-05-01] MEDS: MULTIVITAMINS/MINERALS THERAP 1 TAB PO SCH (08:27)
[2019-05-01] MEDS: LABETALOL 100 MG TAB PO SCH ×2 (08:28→20:42)
[2019-05-01] MEDS: SERTRALINE HCL 50 MG TAB PO SCH (08:28)
[2019-05-01] MEDS: ACAMPROSATE CALCIUM 333 MG TABLET (CAMPRAL) PO SCH ×3 (08:28→20:41)
[2019-05-01] MEDS: POLYVINYL ALCOHOL OPHTH SOLN 15 ML(LIQUITEARS) OU PRN ×3 (09:01→17:21)
[2019-05-01 09:12] LABS: BASO % 0.9 % (0.0-1.0); EOS # 0.1 10^3/uL (0.0-0.5); HEMATOCRIT 52.6 % (42.0-52.0); HEMOGLOBIN 16.7 g/dl (13.5-17.5); LYMPH # 0.5 10^3/uL (1.5-5.0); LYMPH % 11.7 % (24.0-44.0); MEAN CORPUSCULAR HEMOGLOBIN 27.8 pg (27.0-33.0); MEAN CORPUSCULAR HGB CONC 31.7 g/dl (32.0-36.5); MEAN CORPUSCULAR VOLUME 87.5 fl (80.0-96.0); MONO # 0.5 10^3/uL (0.0-0.8); MONO % 11.3 % (0.0-5.0); NEUTROPHILS # 3.2 10^3/uL (1.5-8.5); PLATELET COUNT, AUTOMATED 183 10^3/uL (150-450); RED BLOOD COUNT 6.01 10^6/uL (4.30-6.10); WHITE BLOOD COUNT 4.5 10^3/uL (4.0-10.0)
--- NOTE | 2019-05-01 09:30 | MHIPNPDOC ---
[facility] Progress Note Progress Note DATE OF SERVICE: 05/01/19 HISTORY:per Dr. Espinoza admit note "He is 38 years old. He is . He and his are possibly going to divorce. They have four children. He has recently been staying with his parents. He has been depressed, increasingly so since the separation a few months ago, has bene increasingly distressed. Has difficulties with drinking, considerably so. Saybetsy attended rehabilitation in [place] in March, was there for about a month, says [place] as his sister lives there. He did not have any withdrawal symptoms from alcohol. He says that he has not had any to speak of in the past either. He says that he was okay for about a week and then felt anxious, picked up drinking again, and that pattern continued, including over Cory and the New Year, intensified last few weeks to the point where he has been drinking first thing in the morning. He says that he does not think that he has had black outs. He has been feeling increasingly depressed and despondent, and says felt hopel ess and yesterday thought of taking his own life. He says that he had been drinking at the time, had a rope around the rafter, says had a chair in place and was getting ready essentially to hang himself when his father walked in. He says that he was going to ask him for dinner, when he saw the patient in that state. The patient was brought to the hospital. He says that he remembers the journey, did not lose any consciousness, did not in fact have the rope around his neck. He says that he began thinking of his children, and wishes to continue for them. He has been feeling depressed. Says was less so when he was in rehab for about a month. Prior to that, says was free of alcohol for about 2 months, some time in the late summer, did not have a depressed mood but was anhedonic. Did not have much interest in previously pleasurable activities. Sleep was a bit erratic. No history consistent with hypomania, sujata, obsessions or compulsions. No posttraumatic stress disorder (PTSD). 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 No flashbacks. Says had difficulties with alcohol for several years, at least in his 20s, and that has continued. He has been on sertraline at 100 mg daily, prescribed by primary care, has been on this for quite a while and says was put on Campral when he was in [place] at rehab, but on 333 mg three times a day rather than the usual dose, which is double that. He said that it was something to do with insurance. He was due to increase it on his own recently. No history, as far as I am aware, of any suicide attempts." VITAL SIGNS: See below. NEW TEST RESULTS: See below. CURRENT MEDICATIONS: See below. MENTAL STATUS EXAMINATION: He is neat. He is cooperative. Appears well nourished. There is not agitation. No psychomotor retardation. He is coherent. Affect is improved in range and reactive. He denies suicidal thoughts, no plans. No homicidal ideas or intents. No evidence of psychosis. Cognition is grossly intact. Judgment and insight are improving. DIAGNOSES: 1. Other specified depressive disorder. 2. Rule out alcohol induced depressive disorder. 3. Alcohol use disorder. 4. Separation from . ASSESSMENT:Pt seen and states that his mood is better. States he's having difficulty sleeping at night and would like trazodone increased for tonight to see if it helps. Feels he is tolerating his zoloft and it's beneficial after increased by Dr. Espinoza yesterday. States his alcohol withdrawal is improving and he last took ativan for withdrawal yesterday. States increase in campral very beneficial for alcohol cravings. He is attending groups and finding them hel pful. He denies SI/HI, hallucinations, delusions. Pt feels safe here. MANAGEMENT PLAN: continue plan zoloft 150mg daily trazodone 50mg qhs prn insomnia Ciwa protocol with ativan Campral 666mg tid TIME SPENT: 30 minutes. Vital Signs Vital Signs Date Time Temp Pulse Resp B/P (MAP) Pulse Ox O2 Delivery O2 Flow Rate FiO2 05/01/19 08:28 75 135/98 05/01/19 06:21 97.9 16 04/29/19 17:50 100 Room Air Laboratory Data 24H Labs Laboratory Tests 2 05/01/19 08:25: Immature Granulocyte % (Auto) 3.1H, Neutrophils (%) (Auto) 71.0H, Lymphocytes (%) (Auto) 11.7L, Monocytes (%) (Auto) 11.3H, Eosinophils (%) (Auto) 2.0, Basophils (%) (Auto) 0.9, Neutrophils # (Auto) 3.2, Lymphocytes # (Auto) 0.5L, Monocytes # (Auto) 0.5, Eosinophils # (Auto) 0.1, Basophils # (Auto) 0.0, Nucleated Red Blood Cells % (auto) 0.0 CBC/BMP Laboratory Tests 05/01/19 08:25 Current Medications Current Medications Medications (Trade) Dose Ordered Sig/Salas Route PRN Reason Start Time Stop Time Status Last Admin Dose Admin Acamprosate (Campral) 666 mg TID PO 04/30/19 09:00 05/01/19 08:28 Al Hydrox/Mg Hydrox/Simethicone (Mylanta) 30 ml Q4HP PRN PO HEARTBURN/INDIGESTION 04/29/19 10:45 UNV Al Hydrox/Mg Hydrox/Simethicone (Mylanta) 30 ml Q4HP PRN PO HEARTBURN/INDIGESTION 04/29/19 11:00 Artificial Tears (Akwa Tears) 2 drop QIDP PRN OU DRY EYES 04/30/19 13:00 05/01/19 09:01 Folic Acid (Folic Acid) 1 mg DAILY PO 04/29/19 09:00 04/29/19 11:17 DC 04/29/19 09:52 Folic Acid (Folic Acid) 1 mg DAILY PO 04/30/19 09:00 05/01/19 08:27 Folic Acid (Folic Acid) 1 mg DAILY PO 04/30/19 09:00 UNV Home Med (Med Rec Complete!) ASDIRECTED XX 04/29/19 11:30 04/29/19 11:31 DC Ibuprofen (Advil) 400 mg Q6HP PRN PO PAIN 04/29/19 10:45 UNV Ibuprofen (Advil) 400 mg Q6HP PRN PO PAIN 04/29/19 11:00 Labetalol HCl (Normodyne, Trandate) 100 mg BID PO 04/29/19 21:00 05/01/19 08:28 Lorazepam (Ativan) 2 mg ASDIRECTED PRN PO SEE PROTOCOL 04/29/19 00:00 04/29/19 11:17 DC 04/29/19 11:11 Lorazepam (Ativan) 2 mg ASDIRECTED PRN PO SEE PROTOCOL 04/29/19 10:45 UNV Lorazepam (Ativan) 2 mg ASDIRECTED PRN PO SEE PROTOCOL 04/29/19 11:00 04/30/19 09:20 Magnesium Hydroxide (Milk Of Magnesia) 30 ml DAILYPRN PRN PO CONSTIPATION 04/29/19 10:45 UNV Magnesium Hydroxide (Milk Of Magnesia) 30 ml DAILYPRN PRN PO CONSTIPATION 04/29/19 11:00 Multivitamins (Theragram-M) 1 tab DAILY PO 04/29/19 09:00 04/29/19 11:17 DC 04/29/19 09:52 Multivitamins (Theragram-M) 1 tab DAILY PO 04/30/19 09:00 05/01/19 08:27 Multivitamins (Theragram-M) 1 tab DAILY PO 04/30/19 09:00 UNV Omeprazole (PriLOSEC) 40 mg BID PO 04/29/19 09:00 05/01/19 08:27 Sertraline HCl (Zoloft) 100 mg QHS PO 04/29/19 21:00 04/29/19 18:02 DC Sertraline HCl (Zoloft) 150 mg DAILY PO 04/30/19 09:00 05/01/19 08:28 Thiamine HCl (Thiamine HCl) 100 mg BID PO 04/29/19 09:00 04/29/19 11:17 DC 04/29/19 09:52 Thiamine HCl (Thiamine HCl) 100 mg BID PO 04/29/19 21:00 05/02/19 20:59 05/01/19 08:27 Thiamine HCl (Thiamine HCl) 100 mg BID PO 04/29/19 21:00 05/02/19 20:59 UNV Trazodone HCl (Desyrel) 50 mg QHSP PRN PO INSOMNIA 04/29/19 10:45 UNV Trazodone HCl (Desyrel) 50 mg QHSP PRN PO INSOMNIA 04/29/19 11:00 04/30/19 20:15 Allergies Coded Allergies: No Known Allergies (Unverified , NONE, 06/19/18) BREANNE OLIVEIRA DO May 01, 2019 9:30 am
[2019-05-01 09:47] LABS: ALT/SGPT 48 U/L (12-78); BILIRUBIN,TOTAL 1.1 MG/DL (0.2-1.0); BLOOD UREA NITROGEN 10 MG/DL (7-18); CALCIUM LEVEL 9.2 MG/DL (8.5-10.1); CARBON DIOXIDE LEVEL 26 MEQ/L (21-32); CHLORIDE LEVEL 106 MEQ/L (98-107); CREATININE FOR GFR 0.92 MG/DL (0.70-1.30); GLOMERULAR FILTRATION RATE > 60.0 (>60); GLUCOSE, FASTING 132 MG/DL (70-100); POTASSIUM SERUM 4.1 MEQ/L (3.5-5.1); SODIUM LEVEL 139 MEQ/L (136-145); TOTAL PROTEIN 7.5 GM/DL (6.4-8.2)
[2019-05-01] MEDS: PROPRANOLOL 10 MG TAB PO SCH ×3 (11:35→20:42)
[2019-05-01 14:00] VITALS: BP 132/83
--- NOTE | 2019-05-01 18:22 | MHIPN ---
DATE: 04/30/2019 VITAL SIGNS: Blood pressure 136/84, pulse 90, temperature 99.2. CHIEF COMPLAINT: Says feels a bit better. SUBJECTIVE: Seen for followup. Indicates feels a bit better, and that his father visited yesterday, that went well. Says he had broken sleep last night, he is not quite sure why, suggests it may be because it is a new place. Used trazodone, says was given that when in rehabilitation as well, and had difficulties with sleep for the first couple of nights, until things settled down. Denies any cravings. Was tremulous earlier today, from what I understand from the staff, and was given Ativan, as there were concerns he may have had withdrawal, but his parameters as regards blood pressure and pulse have remained relatively steady. MENTAL STATUS EXAMINATION: He is neat, he is cooperative. There is no agitation, no psychomotor retardation, he is coherent, no tremors. Affect: Displays a fair range. He denies any thoughts of harming himself or anyone else. At present, does not appear to be internally preoccupied. Cognition is grossly intact. Judgment is compromised, as is insight at present. ASSESSMENT: 1. Other specified depressive disorder. 2. Alcohol use disorder. 3. Consider alcohol induced depressive disorder. Remains depressed, we will monitor for withdrawal symptoms. PLAN: He has been started on Zoloft, in fact it has been increased, to 150 mg daily. We will look at resuming the Campral at 666 mg three times a day. We will monitor for withdrawal symptoms, and address accordingly. He is to be encouraged to participate in activities in the unit. We will look at obtaining collateral information as well. Further recommendations will be made when he sees the assigned psychiatrist and the treatment team tomorrow.
[2019-05-01] MEDS: traZODone 50 MG TAB PO PRN (20:42)
[2019-05-01 22:05] VITALS: BP 132/97
[2019-05-02] MEDS: IBUPROFEN 400 MG TAB PO PRN ×2 (02:19→20:26)
[2019-05-02 06:04] VITALS: BP 139/92
[2019-05-02 06:25] VITALS: BP 139/92
[2019-05-02] MEDS: ACAMPROSATE CALCIUM 333 MG TABLET (CAMPRAL) PO SCH ×3 (08:37→20:27)
[2019-05-02] MEDS: MULTIVITAMINS/MINERALS THERAP 1 TAB PO SCH (08:37)
[2019-05-02] MEDS: OMEPRAZOLE 20 MG CAP PO SCH ×2 (08:38→20:20)
[2019-05-02] MEDS: THIAMINE 100 MG TAB PO SCH (08:38)
[2019-05-02] MEDS: LABETALOL 100 MG TAB PO SCH ×2 (08:38→20:27)
[2019-05-02] MEDS: FOLIC ACID 1 MG TAB PO SCH (08:38)
[2019-05-02] MEDS: PROPRANOLOL 10 MG TAB PO SCH ×3 (08:38→20:25)
[2019-05-02] MEDS: SERTRALINE HCL 50 MG TAB PO SCH (08:38)
[2019-05-02] MEDS: POLYVINYL ALCOHOL OPHTH SOLN 15 ML(LIQUITEARS) OU PRN ×3 (08:39→19:25)
--- NOTE | 2019-05-02 10:40 | MHIPNPDOC ---
[facility] Progress Note Progress Note Inpatient Progress Note Coy Hernandez MRN: N/[id number] Date of : N/A Date of Service: 05/02/2019 History of Present Illness The patient a 38-year-old man with depression, presents due to concern of depression on antidepressant, is slated for discharge tomorrow . Interval History Psychiatric symptoms today: The patient is met with, he reports that he is doing better and feeling ready for discharge. Affective: The patient reports improved mood, less loss of interest but reports difficulties with sleep. Psychotic: Denies any psychotic symptoms. Anxiety: Denies any anxiety symptoms. Misc: sleeping/ eating behavior normal. Group Attendance: The patient attends well. Medication Side effects: See ROS below Behavioral problems/significant events overnight: none Staff Report: The patient is friendly, amenable. Review Of Systems General: Denies fever or appetite changes Cardiovascular: Denies Chest pain or palpations GI: Denies Nausea, vomiting, or bowel changes Respiratory: Denies shortness of breath or cough Neuro: Denies dizziness, tremors Derm: Denies any rashes or pruritus : Denies any dysuria or urinary problems MSK: Denies any muscle tightness or stiffness HEENT: Denies any vision changes or headaches Psychotherapy None on this visit. Vital Signs Reviewed. Mental Status Examination General: Well dressed with good hygiene Speech: Spontaneous and fluid Thought processes: Linear and logical MSK: Smooth and coordinated gait, no signs of tremors or involuntary orofacial movements Thought content: Future orientated Abstract reasoning, and computation: Intact Description of associations: Intact Description of abnormal or psychotic thoughts: Denies any suicidal or homicidal ideation. Denies any auditory or visual hallucinations. Does not appear to be responding to internal stimuli. Does not appear to be endorsing any bizarre or paranoid ideation. Judgment: fair Insight: fair Orientation: Alert and orientated 3 Cognition: Grossly normal Recent and remote memory: Intact Attention span and concentration: Intact Fund of knowledge: Adequate Mood: "okay" Affect: Euthymic with a full range Diagnoses Assessment and Plan Depressive disorder: Continue Zoloft 150 mg daily. Change trazodone to Rozerem 8 mg nightly. Discussed risks, benefits and potential side effects with patient. Alcohol use disorder: Continue Campral 666 mg and CIWA protocol. Disposition Patient will be considered for discharge as per Dr. Steward plan when she returns Time Spent 15 mins Wednesday Vital Signs Vital Signs Date Time Temp Pulse Resp B/P (MAP) Pulse Ox O2 Delivery O2 Flow Rate FiO2 05/02/19 08:38 67 139/94 05/02/19 06:04 97.0 16 04/29/19 17:50 100 Room Air Current Medications Current Medications Medications (Trade) Dose Ordered Sig/Salas Route PRN Reason Start Time Stop Time Status Last Admin Dose Admin Acamprosate (Campral) 666 mg TID PO 04/30/19 09:00 05/02/19 08:37 Al Hydrox/Mg Hydrox/Simethicone (Mylanta) 30 ml Q4HP PRN PO HEARTBURN/INDIGESTION 04/29/19 10:45 UNV Al Hydrox/Mg Hydrox/Simethicone (Mylanta) 30 ml Q4HP PRN PO HEARTBURN/INDIGESTION 04/29/19 11:00 Artificial Tears (Akwa Tears) 2 drop QIDP PRN OU DRY EYES 04/30/19 13:00 05/02/19 08:39 Folic Acid (Folic Acid) 1 mg DAILY PO 04/29/19 09:00 04/29/19 11:17 DC 04/29/19 09:52 Folic Acid (Folic Acid) 1 mg DAILY PO 04/30/19 09:00 05/02/19 08:38 Folic Acid (Folic Acid) 1 mg DAILY PO 04/30/19 09:00 UNV Home Med (Med Rec Complete!) ASDIRECTED XX 04/29/19 11:30 04/29/19 11:31 DC Ibuprofen (Advil) 400 mg Q6HP PRN PO PAIN 04/29/19 10:45 UNV Ibuprofen (Advil) 400 mg Q6HP PRN PO PAIN 04/29/19 11:00 05/02/19 02:19 Labetalol HCl (Normodyne, Trandate) 100 mg BID PO 04/29/19 21:00 05/02/19 08:38 Lorazepam (Ativan) 2 mg ASDIRECTED PRN PO SEE PROTOCOL 04/29/19 00:00 04/29/19 11:17 DC 04/29/19 11:11 Lorazepam (Ativan) 2 mg ASDIRECTED PRN PO SEE PROTOCOL 04/29/19 10:45 UNV Lorazepam (Ativan) 2 mg ASDIRECTED PRN PO SEE PROTOCOL 04/29/19 11:00 04/30/19 09:20 Magnesium Hydroxide (Milk Of Magnesia) 30 ml DAILYPRN PRN PO CONSTIPATION 04/29/19 10:45 UNV Magnesium Hydroxide (Milk Of Magnesia) 30 ml DAILYPRN PRN PO CONSTIPATION 04/29/19 11:00 Multivitamins (Theragram-M) 1 tab DAILY PO 04/29/19 09:00 04/29/19 11:17 DC 04/29/19 09:52 Multivitamins (Theragram-M) 1 tab DAILY PO 04/30/19 09:00 05/02/19 08:37 Multivitamins (Theragram-M) 1 tab DAILY PO 04/30/19 09:00 UNV Omeprazole (PriLOSEC) 40 mg BID PO 04/29/19 09:00 05/02/19 08:38 Propranolol HCl (Inderal) 10 mg TID PO 05/01/19 09:00 05/02/19 08:38 Sertraline HCl (Zoloft) 100 mg QHS PO 04/29/19 21:00 04/29/19 18:02 DC Sertraline HCl (Zoloft) 150 mg DAILY PO 04/30/19 09:00 05/02/19 08:38 Thiamine HCl (Thiamine HCl) 100 mg BID PO 04/29/19 09:00 04/29/19 11:17 DC 04/29/19 09:52 Thiamine HCl (Thiamine HCl) 100 mg BID PO 04/29/19 21:00 05/02/19 20:59 05/02/19 08:38 Thiamine HCl (Thiamine HCl) 100 mg BID PO 04/29/19 21:00 05/02/19 20:59 UNV Trazodone HCl (Desyrel) 50 mg QHSP PRN PO INSOMNIA 04/29/19 10:45 UNV Trazodone HCl (Desyrel) 50 mg QHSP PRN PO INSOMNIA 04/29/19 11:00 05/01/19 20:42 Allergies Coded Allergies: No Known Allergies (Unverified , NONE, 06/19/18) JONNY SANDERS DO May 02, 2019 10:40
[2019-05-02 17:35] VITALS: BP 130/91
[2019-05-02] MEDS ORDERED: RAMELTEON 8 MG TAB (ROZEREM) PO PRN (20:37)
[2019-05-02 22:00] VITALS: BP 148/98
[2019-05-03 06:04] VITALS: BP 128/78
[2019-05-03 06:27] VITALS: BP 128/78
[2019-05-03] MEDS ORDERED: ACAM0.05 PO (08:54)
[2019-05-03] MEDS ORDERED: PROP10TA56 PO (08:54)
[2019-05-03] MEDS ORDERED: HYDR-643 PO (08:54)
[2019-05-03] MEDS ORDERED: SERT50TA29 PO (08:54)
[2019-05-03] MEDS ORDERED: TRAZ-257 PO (08:54)
--- NOTE | 2019-05-03 08:54 | MHDSPDOC ---
[facility] Discharge Summary Discharge Summary DATE OF ADMISSION: Apr 29, 2019 at 10:45 am DATE OF DISCHARGE: May 03, 2019 DISCHARGE DIAGNOSES: 1. Other specified depressive disorder. 2. Rule out alcohol induced depressive disorder. 3. Alcohol use disorder. REASON FOR ADMISSION: per Dr. Espinoza admit note "He is 38 years old. He is . He and his are possibly going to divorce. They have four children. He has recently been staying with his parents. He has been depressed, increasingly so since the separation a few months ago, has bene increasingly distressed. Has difficulties with drinking, considerably so. Says attended rehabilitation in [place] in March, was there for about a month, says [place] as his sister lives there. He did not have any withdrawal symptoms from alcohol. He says that he has not had any to speak of in the past either. He says that he was okay for about a week and then felt anxious, picked up drinking again, and that pattern continued, including over and the New Year, intensified last few weeks to the point where he has been drinking first thing in the morning. He says that he does not think that he has had black outs. He has been feeling increasingly depressed and despondent, and says felt hopeless and yesterday thought of taking his own life. He says that he had been drinking at the time, had a rope around the rafter, says had a chair in place and was getting ready essentially to hang himself when his father walked in. He says that he was going to ask him for dinner, when he saw the patient in that state. The patient was brought to the hospital. He says that he remembers the journey, did not lose any consciousness, did not in fact have the rope around his neck. He says that he began thinking of his children, and wishes to continue for them. He has been feeling depressed. Says was less so when he was in rehab for about a month. Prior to that, says was free of alcohol for about 2 months, some time in the late summer, did not have a depressed mood but was anhedonic. Did not have much interest in previously pleasurable activities. Sleep was a bit erratic. No history consistent with hypomania, sujata, obsessions or compulsions. No posttraumatic stress disorder (PTSD). 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 No flashbacks. Says had difficulties with alcohol for several years, at least in his 20s, and that has continued. He has been on sertraline at 100 mg daily, prescribed by primary care, has been on this for quite a while and says was put on Campral when he was in [place] at rehab, but on 333 mg three times a day rather than the usual dose, which is double that. He said that it was something to do with insurance. He was due to increase it on his own recently. No history, as far as I am aware, of any suicide attempts." CONSULTANTS INVOLVED: none TREATMENT AND PROGRESS ON THE UNIT : [facility], seen for psychiatric assessment and restarted on his outpatient medication zoloft increased to 150mg daily for mood, inderal 10mg tid for anxiety, and campral increased to 666mg tid for alcohol cravings. He was started on a Ciwa protocol for alcohol withdrawal that he tolerated well and has not received ativan for over 24hrs prior d/c. He denies alcohol withdrawal symptoms. He was provided trazodone 100mg qhs prn insomnia. Pt found his medications beneficial and tolerated them well. He attended groups daily during his stay. His symptoms improved with treatment. On day of discharge he denied depression, anxiety, insomnia, SI/HI, hallucinations, delusions. He was discharged home with follow-up at the [facility] on Wednesday. He felt safe for discharge. DISCHARGE ASSESSMENT: :Pt seen and states that his mood is "good" and that he's looking forward to going home today. States he's sleeping well at night after trazodone was increased to 100mg qhs prn insomnia. Feels he is tolerating his zoloft and campral and feels they're beneficial. Denies any alcohol withdrawal symptoms and has not required ativan for over 24hrs prior d/c. States campral very beneficial for alcohol cravings. He is attending groups and finding them helpful. He denies depression, anxiety, insomnia, SI/HI, hallucinations, delusions. Pt feels safe here. MENTAL STATUS EXAMINATION ON DISCHARGE: He is neat. He is cooperative. Appears well nourished. There is not agita tion. No psychomotor retardation. He is coherent. Affect is euthymic, and full range. Mood is "good." He denies suicidal thoughts, no plans. No homicidal ideas or intents. No evidence of psychosis. Cognition is grossly intact. Judgment and insight are good. MEDICATIONS ON DISCHARGE: zoloft 150mg daily trazodone 100mg qhs prn insomnia Campral 666mg tid inderal 10mg tid PLAN/FOLLOWUP ARRANGEMENTS: D/c home with follow-up at [facility] on Wednesday. The amount of time spent in the coordination of care for this patient was approximately 30 minutes. Vital Signs/I&Os Vital Signs Date Time Temp Pulse Resp B/P (MAP) Pulse Ox O2 Delivery O2 Flow Rate FiO2 05/03/19 06:27 63 128/78 05/03/19 06:04 96.9 18 04/29/19 17:50 100 Room Air Medications Scheduled Acamprosate Calcium (Acamprosate Calcium) 333 Mg Tablet.dr, 333 MG PO TID, (Reported) Labetalol HCl (Labetalol HCl) 100 Mg Tablet, 100 MG PO BID, (Reported) Omeprazole (Omeprazole) 40 Mg Capsule.dr, 40 MG PO DAILY, (Reported) Sertraline HCl (Sertraline HCl) 100 Mg Tab, 100 MG PO QHS, (Reported) Scheduled PRN Diphenhydramine HCl (Diphenhydramine HCl) 25 Mg Cap, 25 MG PO Q6H PRN for ITCHING, (Reported) Hydroxyzine HCl (Hydroxyzine HCl) 10 Mg Tablet, 10 MG PO TID PRN for ANXIET Y/AGITATION, (Reported) Allergies Coded Allergies: No Known Allergies (Unverified , NONE, 06/19/18) BREANNE OLIVEIRA DO May 03, 2019 8:54 am
[2019-05-03] MEDS: PROPRANOLOL 10 MG TAB PO SCH (09:00)
[2019-05-03 09:01] VITALS: BP 132/81
[2019-05-03] MEDS: MULTIVITAMINS/MINERALS THERAP 1 TAB PO SCH (09:05)
[2019-05-03 09:06] VITALS: BP 132/81
[2019-05-03] MEDS: LABETALOL 100 MG TAB PO SCH (09:06)
[2019-05-03] MEDS: SERTRALINE HCL 50 MG TAB PO SCH (09:06)
[2019-05-03] MEDS: FOLIC ACID 1 MG TAB PO SCH (09:07)
[2019-05-03] MEDS: OMEPRAZOLE 20 MG CAP PO SCH (09:07)
[2019-05-03] MEDS: ACAMPROSATE CALCIUM 333 MG TABLET (CAMPRAL) PO SCH (09:07)
[2019-05-03] MEDS: POLYVINYL ALCOHOL OPHTH SOLN 15 ML(LIQUITEARS) OU PRN (09:07)
== END 2019-05-03 11:15 | disposition home or self-care (01) | DRG 775 ==
LOC: M ED 21:46 → M ED INP 04-29 10:45 → M PSY 04-29 14:24
PROVIDERS: ADMIT Psychiatry & Neurology Psychiatry; ATTEND Psychiatry & Neurology Psychiatry
DX: F10.24 Alcohol dependence with alcohol-induced mood disorder (principal); Z63.5 Disruption of family by separation and divorce; I10 Essential (primary) hypertension; F32.9 Major depressive disorder, single episode, unspecified; Z79.899 Other long term (current) drug therapy; E87.1 Hypo-osmolality and hyponatremia; D75.1 Secondary polycythemia; E80.6 Other disorders of bilirubin metabolism; K21.9 Gastro-esophageal reflux disease without esophagitis

== ENCOUNTER 2019-06-07 23:28 | Emergency (ER) | payer OTHER ==
[~2019-06-07] VITALS: Ht 188 cm; Wt 121.1 kg
[2019-06-07 23:28] VITALS: BP 132/92
[2019-06-08] MEDS ORDERED: LIDOCAINE 5% (LIDODERM) PATCH TD ONE (00:15)
[2019-06-08] MEDS ORDERED: **NOTE PATIENT COMMENT** MISC XX SCH (21:00)
== END 2019-06-08 00:30 | disposition left against medical advice (07) ==
LOC: M ED 23:28
DX: Z53.20 Procedure and treatment not carried out because of patient's decision for unspecified reasons (principal)

== ENCOUNTER → 2019-06-07 | Outpatient (REF) | payer OTHER ==
[~2019-06-07] MED LIST changes: +HYDR-643 PO; +OMEP-221 PO; +PROP10TA56 PO; +SERT50TA29 PO; +TRAZ-257 PO; +ZOLO100T PO
[2019-06-07 17:19] LABS: HEMOGLOBIN A1c 5.8 %
== END ==
LOC: M SFHCCLAY 09:56
PROVIDERS: ATTEND Family Medicine
DX: Z00.00 Encounter for general adult medical examination without abnormal findings (principal); R73.01 Impaired fasting glucose

== ENCOUNTER 2019-07-21 19:43 | Inpatient (IN) | payer MEDICAID, OTHER ==
[~2019-07-21] VITALS: Ht 188 cm; Wt 119.3 kg
[2019-07-21 20:43] LABS: HEMOGLOBIN 15.4 g/dl (13.5-17.5); MEAN CORPUSCULAR HEMOGLOBIN 29.2 pg (27.0-33.0); MEAN CORPUSCULAR HGB CONC 34.2 g/dl (32.0-36.5); MEAN CORPUSCULAR VOLUME 85.2 fl (80.0-96.0); PLATELET COUNT, AUTOMATED 143 10^3/uL (150-450); RED BLOOD COUNT 5.28 10^6/uL (4.30-6.10); WHITE BLOOD COUNT 4.4 10^3/uL (4.0-10.0)
[2019-07-21 21:04] LABS: AMPHETAMINES LEVEL URINE NEGATIVE (NEGATIVE); BARBITURATES URINE NEGATIVE (NEGATIVE); BENZODIAZEPINES URINE NEGATIVE (NEGATIVE); CANNABINOIDS URINE NEGATIVE (NEGATIVE); COCAINE METABOLITE URINE NEGATIVE (NEGATIVE); METHADONE URINE NEGATIVE (NEGATIVE); OPIATES URINE NEGATIVE (NEGATIVE); PHENCYCLIDINE URINE NEGATIVE (NEGATIVE)
[2019-07-21 21:19] LABS: ACETAMINOPHEN LEVEL < 2.0 UG/ML (10.0-30.0); ALBUMIN 4.2 GM/DL (3.2-5.2); ALT/SGPT 56 U/L (12-78); BILIRUBIN,DIRECT 0.3 MG/DL (0.0-0.2); BILIRUBIN,TOTAL 1.1 MG/DL (0.2-1.0); BLOOD UREA NITROGEN 8 MG/DL (7-18); CARBON DIOXIDE LEVEL 28 MEQ/L (21-32); CHLORIDE LEVEL 101 MEQ/L (98-107); CREATININE FOR GFR 0.74 MG/DL (0.70-1.30); ETHYL ALCOHOL (ETHANOL) 0.327 % (0.000-0.010); GLOMERULAR FILTRATION RATE > 60.0 (>60); GLUCOSE, FASTING 85 MG/DL (70-100); POTASSIUM SERUM 3.6 MEQ/L (3.5-5.1); SALICYLATE LEVEL < 1.7 MG/DL (5.0-30.0); SODIUM LEVEL 137 MEQ/L (136-145); TOTAL PROTEIN 7.8 GM/DL (6.4-8.2)
[2019-07-22] MEDS ORDERED: LABE10TAB PO (08:49)
[2019-07-22] MEDS ORDERED: HYDR-643 PO (08:49)
[2019-07-22] MEDS ORDERED: OMEP-221 PO (08:49)
[2019-07-22] MEDS ORDERED: NALT50TA4 PO (08:49)
[2019-07-22] MEDS ORDERED: ACAM0.05 PO (08:49)
[2019-07-22] MEDS ORDERED: PROP10TA56 PO (08:49)
[2019-07-22] MEDS ORDERED: VITMTA PO (08:49)
[2019-07-22] MEDS ORDERED: DIPH25CA32 PO (08:49)
[2019-07-22] MEDS ORDERED: REFR0.5D8 OU (08:49)
[2019-07-22] MEDS ORDERED: SERT-138 PO (08:49)
[2019-07-22] MEDS ORDERED: TRAZ-189 PO (08:49)
[2019-07-22] MEDS ORDERED: MAALOX 30 ML SUSP *UDC PO PRN (09:30)
[2019-07-22] MEDS ORDERED: LORazepam 2 MG TAB PO PRN (09:30)
[2019-07-22] MEDS ORDERED: traZODone 50 MG TAB PO PRN (09:30)
[2019-07-22] MEDS ORDERED: ACETAMINOPHEN TAB 650MG DOSE (2X325MG) PO PRN (09:30)
[2019-07-22] MEDS ORDERED: MOM 30ML SUSPENSION UDC PO PRN (09:30)
[2019-07-22] MEDS: THIAMINE 100 MG TAB PO SCH ×2 (11:36→21:09)
[2019-07-22] MEDS: MULTIVITAMINS/MINERALS THERAP 1 TAB PO SCH (11:37)
[2019-07-22] MEDS: FOLIC ACID 1 MG TAB PO SCH (11:37)
[2019-07-22 13:26] VITALS: BP 136/84
[2019-07-22 16:16] VITALS: BP 123/72
--- NOTE | 2019-07-22 20:45 | MHHPE ---
DATE OF ADMISSION: 07/22/2019 HISTORY OF PRESENT ILLNESS: This is a 39-year-old man who was admitted after he texted his that he was going to take an overdose of pills. The patient also called the police. The patient was found to have a blood alcohol level of 0.327, but he has now sobered up. The patient states that he was "in one of those moods." He was feeling increased anxiety, feeling overwhelmed. He became intoxicated, and apparently he just left the house, and that is when he texted his that he was going to overdose on his pills. He also called the police, and they brought him to the hospital. The patient states that he has had erratic sleep, increased anxiety. He states that he and his have been having some marital problems, but he says that he has been back at the house with the and his children again recently, and that he feels that things are getting better between them. He admits that he has been feeling very depressed, feeling hopeless and helpless. Information was obtained from the in the emergency room. She indicated that the patient was in the house for the past few days, but that he actually lives with his father and that he was doing some work around the house, and so they left, and then she saw the text that he sent her. The indicated that this is not the first time the patient has had suicidal thoughts and that he was hospitalized once before after his father found him when he was about to make a suicidal attempt by hanging himself. Also, the emergency room staff spoke with the patient's father, who states that the patient is having a rough time with his divorce and with work. Also, the father indicated that the patient has significant problems with having " bad dreams" and also with his alcohol abuse, which seems to be pretty intense. He went to a rehabilitation program in March 2019 but has relapsed again. Also of note was that the told the emergency room staff that the relationship between them has not improved, that he has been staying at the house recently, but that does not mean that they are planning, or that she is planning, to get back together with him. He feels the opposite. He feels that their relationship is getting better. The patient does receive treatment at [facility]. He is on Zoloft 150 mg, propranolol 10 mg twice a day, trazodone 100 mg at bedtime as needed for insomnia. He has not needed the trazodone, however, and is sleeping well without it,. Though the father said that he was having bad drams, the patient denies this. He was being prescribed naltrexone, but he says when he started to drink, he stopped using it, and he does not want me to renew it at this point. I did not elicit any hypomanic or manic-like symptoms or posttraumatic stress disorder (PTSD), obsessive-compulsive disorder (OCD), or panic-like symptoms in this patient. PAST PSYCHIATRIC HISTORY: The patient had one prior psychiatric admission from 04/29/2019 to 05/03/2019. He was admitted at that time with depression, again because of the separation from his . He was drinking again. At that time, the records indicate that he had been drinking again, and he had a rope around the rafter, and he had a chair in place and was getting essentially ready to hang himself when his father walked in. 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 SUBSTANCE ABUSE HISTORY: As noted above, he has quite a significant history of alcohol abuse. He has been to rehabilitation on two other occasions, once at [facility] in his late 20s, and then most recently in [place] at the end of last year. 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 ABUSE HISTORY: He denies any history of any physical or sexual abuse. FAMILY HISTORY: Negative for any suicides or any psychiatric problems. VITAL SIGNS: Blood pressure 136/84, pulse 97, respirations 16. APPEARANCE: He did not appear to be in any apparent distress. NEUROMUSCULAR SYSTEM: I did not see his gait, but he had no involuntary movements in his upper extremities. All other systems were reviewed and found to be negative. MENTAL STATUS EXAMINATION: The patient is alert and oriented times three. Eye contact is fairly good. Psychomotor activity is decreased. He is verbally spontaneous. There is no formal thought disorder noted. Mood is depressed and anxious. Affect full range and appropriate. He is not psychotic. He is denying suicidal ideations now. He is not homicidal. Concentration is fair. Memory is intact. Insight and judgment is poor. DIAGNOSES: 1. Other specified depressive disorder. 2. Other specified anxiety disorder. 3. Alcohol use disorder, severe. TREATMENT PLAN: At this point, we will further observe and evaluation this patient for depressive and anxiety symptoms. He will be placed on Clinical [place] Withdrawal Assessment (CIWA), since this patient has a significant alcohol abuse history. We will monitor him for continued resolution of any suicidal ideations. As far as medication goes, I am going to continue the Zoloft 150 mg daily. I am going to add some Abilify 2 mg daily to try to enhance the effects of the antidepressant. We will continue propranolol 10 mg twice a day. He says he no longer needs the trazodone and is sleeping well without it, and he does not want to start again on the naltrexone. The plan will be to discharge him with appropriate followup when stable. STACIA
[2019-07-22] MEDS ORDERED: traZODone 100 MG TAB PO PRN (21:30)
[2019-07-22 22:00] VITALS: BP 130/77
[2019-07-22] MEDS: PROPRANOLOL 10 MG TAB PO SCH (22:11)
[2019-07-22] MEDS: LABETALOL 100 MG TAB PO SCH (22:11)
[2019-07-23 06:51] VITALS: BP 126/79
[2019-07-23 08:00] VITALS: BP 134/92
[2019-07-23] MEDS: THIAMINE 100 MG TAB PO SCH ×2 (08:00→20:14)
[2019-07-23] MEDS: MULTIVITAMINS/MINERALS THERAP 1 TAB PO SCH (08:00)
[2019-07-23] MEDS: FOLIC ACID 1 MG TAB PO SCH (08:01)
[2019-07-23] MEDS: SERTRALINE HCL 50 MG TAB PO SCH (08:01)
[2019-07-23] MEDS: PROPRANOLOL 10 MG TAB PO SCH ×2 (08:01→20:14)
[2019-07-23] MEDS: LABETALOL 100 MG TAB PO SCH ×2 (08:01→20:14)
--- NOTE | 2019-07-23 10:35 | HPEPDOC ---
General Date of Admission Jul 22, 2019 at 09:26 Date of Service: Jul 23, 2019 Chief Complaint The patient is a 39-year-old male admitted with a reason for visit of Unspecified Depressive Disorder. Source: Patient Exam Limitations: No limitations Timing/Duration: Other (not applicable) Severity: Other (not applicable) Associated Symptoms: Other (not applicable) History of Present Illness 39 years old white male with past medical history of hypertension, GERD, depression, was admitted to inpatient mental health unit with suicidal ideation and alcohol abuse. Patient denies any symptoms of withdrawal, chest pain, shortness of breath, nausea, vomiting, diarrhea today Home Medications Scheduled Acamprosate Calcium (Acamprosate Calcium) 333 Mg Tablet.dr, 666 MG PO TID, (Reported) Hydroxyzine HCl (Hydroxyzine HCl) 10 Mg Tablet, 10 MG PO QHS, (Reported) Labetalol HCl (Labetalol HCl) 100 Mg Tablet, 100 MG PO BID for HYPERTENSION, (Reported) Multivitamins (Thera M Plus Tablet) 1 Each Tablet, 1 TAB PO DAILY, (Reported) Naltrexone HCl (Naltrexone HCl) 50 Mg Tablet, 25 MG PO DAILY, (Reported) Omeprazole (Omeprazole) 40 Mg Capsule.dr, 40 MG PO DAILY, (Reported) Propranolol HCl (Propranolol HCl) 10 Mg Tablet, 10 MG PO BID for ANXIETY, (Reported) Sertraline HCl (Sertraline HCl) 100 Mg Tablet, 150 MG PO DAILY, (Reported) Scheduled PRN Carboxymethylcellulose Sodium (Refresh Tears) 15 Ml Drops, 1 DROP OU Q4H PRN for DRY EYES, (Reported) Diphenhydramine HCl (Diphenhydramine HCl) 25 Mg Capsule, 25 MG PO Q6H PRN for ALLERGIES, (Reported) Trazodone HCl (Trazodone HCl) 100 Mg Tablet, 100 MG PO QHS PRN for SLEEP, (Reported) Allergies Coded Allergies: chlorhexidine (Verified Allergy, Severe, hives, 06/07/19) Iodinated Contrast Media (Verified Adverse Reaction, Unknown, hives, 07/21/19) Past Medical History Medical History Hypertension, GERD, alcohol abuse, depression Surgical History None Social History * Smoker: Denies Alcohol: heavy Drugs: denies A-FIB/CHADSVASC A-FIB History Current/History of A-Fib/PAF?: No Review of Systems Constitutional: Denies: Chills, Fever, Malaise, Night Sweats, Weakness, Fatigue, Weight Loss, Lethargy, Other Eyes: Denies: Pain, Vision change, Conjunctivae inflammation, Eyelid inflammation, Redness, Other ENT: Denies: Head Aches, Ear Pain, Dysphagia, Sinus Congestion, Post Nasal Drip, Sore Throat, Epistaxis, Other Symptoms Skin: Denies: Rash, Lesions, Jaundice, Bruising, Itching, Dry, Breakdown, Nail Changes, Other Pulmonary: Denies: Dyspnea, Cough, Pleuritic Chest Pain, Other Symptoms Cardiovascular: Denies: Chest Pain, Palpitations, Orthopnea, Paroxysmal Noc. Dyspnea, Edema, Lt Headedness, Other Symptoms Gastrointestinal: Denies: Nausea, Vomiting, Abdominal Pain, Diarrhea, Constipation, Melena, Hematochezia, Other Symptoms Musculoskeletal: Denies: Neck Pain, Back Pain, Shoulder Pain, Arm Pain, Hand Pain, Leg Pain, Foot Pain, Joint Pain, Muscle Pain, Spasms, Other Symptoms Neurological: Denies: Weakness, Numbness, Incoordination, Change in speech, Confusion, Seizures, Other Symptoms Psych: Reports: Depression Physical Examination General Exam: Positive: Alert, Cooperative Eye Exam: Positive: PERRLA, Conjunctiva & lids normal ENT Exam: Positive: Atraumatic Neck Exam: Positive: Supple, JVD Chest Exam: Positive: Clear to auscultation, Normal air movement Heart Exam: Positive: Rate Normal, Normal S1, Normal S2 Abdomen Exam: Positive: Normal bowel sounds Extremity Exam: Positive: Normal pulses Skin Exam: Positive: Nl turgor and temperature Neuro Exam: Positive: Strength at 5/5 X4 ext, Cranial Nerves 3-12 NL Psych Exam: Positive: Mental status NL, Mood NL, Oriented x 3 Vital Signs Vital Signs Date Time Temp Pulse Resp B/P (MAP) Pulse Ox O2 Delivery O2 Flow Rate FiO2 07/23/19 08:56 Room Air 07/23/19 08:01 73 07/23/19 08:01 134/92 07/23/19 06:51 98.0 16 99 Problems (1) Suicidal ideations Status: Acute Problem Text: 39 years old white male with past medical history of alcohol dependence, also history of suicidal ideations depression in the past, admitted to mental health inpatient unit with suicidal ideations and alcohol intoxication. Group and individual therapy and counseling, as per psych Pharmaceutical management for depression, anxiety, as per psych (2) Alcohol dependence with intoxication Status: Acute Problem Text: Patient is started on CIWA protocol Patient has no withdrawal symptoms today secondary to treatment with benzodiazepines as per CIWA protocol Patient is also on multivitamin, thiamine, folic acid supplements Will add Protonix 20 mg by mouth daily for his GERD related to alcohol abuse Further, as per psychiatrist's recommendation (3) GERD (gastroesophageal reflux disease) (4) HTN (hypertension) Status: Acute Problem Text: Under well control with present dose of propranolol and labetalol, note patient is been taking both beta blockers since past and seems to be helping him with his anxiety as well as hypertension Plan / VTE VTE Prophylaxis Ordered?: Yes CONOR GALLEGOS MD Jul 23, 2019 10:35
[2019-07-23] MEDS: PANTOPRAZOLE 20 MG TAB PO SCH (11:36)
[2019-07-23] MEDS: NALTREXONE 50 MG TAB PO SCH (13:00)
[2019-07-23] MEDS: ACAMPROSATE CALCIUM 333 MG TABLET (CAMPRAL) PO SCH ×2 (15:21→20:13)
[2019-07-23 15:49] VITALS: BP 117/74
[2019-07-23 15:50] VITALS: BP 117/74
[2019-07-23] MEDS ORDERED: ARIPiprazole 2 MG TAB PO SCH (21:00)
[2019-07-23 22:00] VITALS: BP 131/62
[2019-07-24 06:00] VITALS: BP 120/72
[2019-07-24 06:46] VITALS: BP 120/72
--- NOTE | 2019-07-24 06:48 | MHIPN ---
DATE OF SERVICE: 07/23/2019 The patient today states, "I am doing excellent today". He says that he slept well. He is denying suicidal ideations. He says that he spoke with his . He continues to say that he felt that the relationship with his is getting better. This contradicts what apparently the had advised staff about that she was still planning on going through with the divorce. I suspect that he really is still really minimizing his symptoms. MENTAL STATUS EXAMINATION: The patient is alert and oriented times three. Eye contact is fairly good. He is verbally spontaneous. There is no formal thought disorder. He says his mood is "excellent". Affect appears to be blunted. He is not psychotic. He is denying suicidal or homicidal ideations. Concentration is fair. Memory intact. Insight and judgment poor. DIAGNOSES: Other specified anxiety disorder. Other specified depressive disorder. Alcohol use disorder, severe. TREATMENT PLAN: The patient says that he is doing better, however, I still feel that he is minimizing on his symptoms and it will be important to definitely have further communication with the prior to discharging the patient since the says that she is going through with the divorce and the patient does not seem to have any clue about this. Also, he has been detoxing without any complications. He has only had the one Ativan dose on 07/22/2019 at 2 o'clock in the afternoon and his vitals have been good since then. Also, the patient today wanted to get restarted on his naltrexone and I bumped it up from 25 to 50 mg dose once a day and he also tells me that he had also been on Campral 656 mg three times a day. Actually, he says that he had continued the Campral all along, but when he was prescribed the naltrexone he had only taken that for a couple of days and had stopped it. I will go ahead and start both of the medications. We will continue to monitor him for continued elevation and stabilization of his mood and continued resolution of suicidal ideation.
[2019-07-24] MEDS: SERTRALINE HCL 50 MG TAB PO SCH (08:21)
[2019-07-24] MEDS: NALTREXONE 50 MG TAB PO SCH (08:21)
[2019-07-24] MEDS: MULTIVITAMINS/MINERALS THERAP 1 TAB PO SCH (08:21)
[2019-07-24] MEDS: ACAMPROSATE CALCIUM 333 MG TABLET (CAMPRAL) PO SCH (08:22)
[2019-07-24] MEDS: LABETALOL 100 MG TAB PO SCH (08:22)
[2019-07-24 08:23] VITALS: BP 120/72
[2019-07-24] MEDS: PROPRANOLOL 10 MG TAB PO SCH (08:23)
[2019-07-24] MEDS: PANTOPRAZOLE 20 MG TAB PO SCH (08:23)
[2019-07-24] MEDS: THIAMINE 100 MG TAB PO SCH (08:23)
[2019-07-24] MEDS: FOLIC ACID 1 MG TAB PO SCH (08:23)
--- NOTE | 2019-07-24 09:24 | MHDSPDOC ---
[facility] Discharge Summary Discharge Summary DATE OF ADMISSION: Jul 22, 2019 at 09:26 DATE OF DISCHARGE: 07/24/19 Discharge Coy Hernandez MRN: [id number] Date of : N/A Date of Service: 07/24/2019 Diagnoses Unspecified depressive disorder. Alcohol use disorder, severe. History of Present Illness The patient a 39-year-old man presented to [facility] after feeling overwhelmed and with increased anxiety as he had been drinking approximately 16 beers and had been drinking excessive amounts during the day. He reports that he has difficulty with potential divorce and had thought about overdosing on pills. He was admitted out of abundance of caution. Consultants Involved Hospitalist/PCP screening Treatment and Progress On The Unit Patient was admitted to the inpatient mental health unit and subsequently placed on alcohol withdrawal protocol. He was additionally resumed on his home Zoloft augmented with some Abilify 2 mg in order to increase antidepressant effects as well as given propranolol 10 mg twice a day as needed. Reportedly did not need trazodone as he was sleeping well without it. He had been precontemplative initially on restarting naltrexone but eventually had been restarted on 50 mg of naltrexone. He did well, cooperate with treatment, denied any suicidality and to groups. He had no behavioral problems and did well and subsequently requested discharge reporting that he had gotten significant benefit for being here but felt that he did not wish to remain on a voluntary. Discharge Assessment 39-year-old man with significant history of alcoholism presents with depression and anxiety potentially related to adjustment versus substance use. He does well with supportive treatment and minor augmentation but no behavioral problems and a generally unremarkable admission. His alcohol withdrawal scores have become 0 by the time of his discharge and he is likely over the greatest risk for alcohol withdrawal. The patient at the time of discharge did not meet criteria for involuntary admission/extension due to having a normal mental status exam, fair insight into the situation, They are engaged in the discharge process, as well as being friendly and amenable in behavioral control and havent been engaging in any observed concerning behavior or ideation recently. They decline voluntary extension/admission at this time and must be discharged in good vickie, as Im unable to make a case for holding the patient against their will. They may have historical risk factors of admissions and other interactions with psychiatry however, those are not modifiable from a clinical perspective. The patient will need to be discharged in good vickie. Mental Status Examination General: Well dressed with good hygiene Speech: Spontaneous and fluid Thought processes: Linear and logical MSK: Smooth and coordinated gait, no signs of tremors or involuntary orofacial movements Thought content: Future orientated Abstract reasoning, and computation: Intact Description of associations: Intact Description of abnormal or psychotic thoughts: Denies any suicidal or homicidal ideation. Denies any auditory or visual hallucinations. Does not appear to be responding to internal stimuli. Does not appear to be endorsing any bizarre or paranoid ideation. Judgment: fair Insight: fair Orientation: Alert and orientated 3 Cognition: Grossly normal Recent and remote memory: Intact Attention span and concentration: Intact Fund of knowledge: Adequate Mood: "okay" Affect: Euthymic with a full range Follow Up The social work team worked during the predischarge meeting in order to evaluate for further issues of lethality address them fully before discharge. They worked on safety planning with the patient's family members in order to ensure that the patient will have a safe and effective discharge. Time Spent The amount of time spent in the coordination of care for this patient was approximately 45 minutes. Wednesday Vital Signs/I&Os Vital Signs Date Time Temp Pulse Resp B/P (MAP) Pulse Ox O2 Delivery O2 Flow Rate FiO2 07/24/19 08:23 56 120/72 07/24/19 06:46 97.1 14 99 Room Air Medications Scheduled Acamprosate Calcium (Acamprosate Calcium) 333 Mg Tablet.dr, 666 MG PO TID, (Reported) Aripiprazole (Abilify) 2 Mg Tablet, 2 MG PO QHS for mood for 7 Days, #7 Hydroxyzine HCl (Hydroxyzine HCl) 10 Mg Tablet, 10 MG PO QHS, (Reported) Labetalol HCl (Labetalol HCl) 100 Mg Tablet, 100 MG PO BID for HYPERTENSION, (Reported) Multivitamins (Thera M Plus Tablet) 1 Each Tablet, 1 TAB PO DAILY, (Reported) Naltrexone HCl (Naltrexone HCl) 50 Mg Tablet, 50 MG PO DAILY for alcohol for 7 Days, #7 Omeprazole (Omeprazole) 40 Mg Capsule.dr, 40 MG PO DAILY, (Reported) Propranolol HCl (Propranolol HCl) 10 Mg Tablet, 10 MG PO BID for ANXIETY, (Reported) Sertraline HCl (Sertraline HCl) 100 Mg Tablet, 150 MG PO DAILY, (Reported) Scheduled PRN Carboxymethylcellulose Sodium (Refresh Tears) 15 Ml Drops, 1 DROP OU Q4H PRN for DRY EYES, (Reported) Diphenhydramine HCl (Diphenhydramine HCl) 25 Mg Capsule, 25 MG PO Q6H PRN for ALLERGIES, (Reported) Trazodone HCl (Trazodone HCl) 100 Mg Tablet, 100 MG PO QHS PRN for SLEEP, (Repor evans) Allergies Coded Allergies: chlorhexidine (Verified Allergy, Severe, hives, 06/07/19) Iodinated Contrast Media (Verified Adverse Reaction, Unknown, hives, 07/21/19) JONNY SANDERS DO Jul 24, 2019 09:24
[2019-07-24] MEDS ORDERED: ABIL1TAB13 PO (12:12)
[2019-07-24] MEDS ORDERED: NALT50TA4 PO (12:12)
[2019-07-24 15:00] VITALS: BP 124/67
== END 2019-07-24 15:40 | disposition home or self-care (01) | DRG 754 ==
LOC: M ED 19:43 → M ED INP 07-22 09:26 → M PSY 07-22 13:00
PROVIDERS: ADMIT Psychiatry & Neurology Psychiatry; ATTEND Psychiatry & Neurology Addiction Medicine
DX: F32.9 Major depressive disorder, single episode, unspecified (principal); I10 Essential (primary) hypertension; R45.851 Suicidal ideations; F10.229 Alcohol dependence with intoxication, unspecified; Z63.5 Disruption of family by separation and divorce; Z79.899 Other long term (current) drug therapy; Z88.8 Allergy status to other drugs, medicaments and biological substances; K21.9 Gastro-esophageal reflux disease without esophagitis

== ENCOUNTER → 2019-07-27 | Outpatient (CLI) | payer MEDICAID ==
[~2019-07-27] MED LIST changes: +ABIL1TAB13 PO; +NALT50TA4 PO; +REFR0.5D8 OU; +TRAZ-189 PO; +VITMTA PO
== END ==
LOC: M OUTALCOH 07:51
PROVIDERS: ATTEND Psychiatry & Neurology Addiction Medicine
DX: Z13.39 Encounter for screening examination for other mental health and behavioral disorders (principal); F10.20 Alcohol dependence, uncomplicated

== ENCOUNTER 2019-08-02 09:59 | Outpatient (RCR) | payer MEDICAID | END 2019-08-03 | LOC: M OUTALCOH 09:59 | PROVIDERS: ATTEND Psychiatry & Neurology Addiction Medicine | DX: F10.20 Alcohol dependence, uncomplicated (principal) ==

== ENCOUNTER → 2019-08-08 | Outpatient (REF) | payer MEDICAID ==
[2019-08-08 12:01] LABS: BASO # 0.1 10^3/uL (0.0-0.2); BASO % 0.5 % (0.0-1.0); EOS # 0.1 10^3/uL (0.0-0.5); EOS % 0.5 % (0.0-3.0); HEMATOCRIT 46.6 % (42.0-52.0); HEMOGLOBIN 15.7 g/dl (13.5-17.5); LYMPH # 0.8 10^3/uL (1.5-5.0); LYMPH % 8.1 % (24.0-44.0); MEAN CORPUSCULAR HEMOGLOBIN 29.5 pg (27.0-33.0); MEAN CORPUSCULAR HGB CONC 33.7 g/dl (32.0-36.5); MEAN CORPUSCULAR VOLUME 87.4 fl (80.0-96.0); MONO # 0.7 10^3/uL (0.0-0.8); NEUTROPHILS # 7.6 10^3/uL (1.5-8.5); NEUTROPHILS % 81.2 % (36.0-66.0); PLATELET COUNT, AUTOMATED 315 10^3/uL (150-450); RED BLOOD COUNT 5.33 10^6/uL (4.30-6.10); WHITE BLOOD COUNT 9.4 10^3/uL (4.0-10.0)
[2019-08-08 12:12] LABS: ALT/SGPT 37 U/L (12-78); BILIRUBIN,DIRECT 0.2 MG/DL (0.0-0.2); BILIRUBIN,TOTAL 1.2 MG/DL (0.2-1.0); CALCIUM LEVEL 9.6 MG/DL (8.5-10.1); CREATININE FOR GFR 0.78 MG/DL (0.70-1.30); GLOMERULAR FILTRATION RATE > 60.0 (>60); TOTAL PROTEIN 7.3 GM/DL (6.4-8.2)
[2019-08-08 12:16] LABS: HEMOGLOBIN A1c 5.3 %
== END ==
LOC: M LAB REF 10:59
PROVIDERS: ATTEND Internal Medicine Pulmonary Disease
DX: D86.2 Sarcoidosis of lung with sarcoidosis of lymph nodes (principal)

== ENCOUNTER 2019-09-01 08:45 | Outpatient (RCR) | payer MEDICAID | END 2019-09-03 | LOC: M OUTALCOH 08:45 | PROVIDERS: ATTEND Psychiatry & Neurology Addiction Medicine | DX: F10.20 Alcohol dependence, uncomplicated (principal) ==

== ENCOUNTER 2019-10-02 13:06 | Outpatient (RCR) | payer MEDICAID | END 2019-10-03 | LOC: M OUTALCOH 13:06 | PROVIDERS: ATTEND Psychiatry & Neurology Addiction Medicine | DX: F10.20 Alcohol dependence, uncomplicated (principal) ==

== ENCOUNTER 2019-11-01 15:00 | Outpatient (RCR) | payer MEDICAID | END 2019-11-03 | LOC: M OUTALCOH 15:00 | PROVIDERS: ATTEND Psychiatry & Neurology Addiction Medicine | DX: F10.20 Alcohol dependence, uncomplicated (principal) ==

== ENCOUNTER 2019-11-23 09:00 | Outpatient (RCR) | payer MEDICAID | END 2019-12-04 | LOC: M OUTALCOH 09:00 | PROVIDERS: ATTEND Psychiatry & Neurology Addiction Medicine | DX: F10.20 Alcohol dependence, uncomplicated (principal) ==

== ENCOUNTER 2019-12-21 09:00 | Outpatient (RCR) | payer MEDICAID | END 2020-01-03 | LOC: M OUTALCOH 09:00 | PROVIDERS: ATTEND Psychiatry & Neurology Addiction Medicine | DX: F10.20 Alcohol dependence, uncomplicated (principal) ==

== ENCOUNTER → 2020-04-30 | Outpatient (CLI) | payer MEDICAID, OTHER ==
[~2020-04-30] MED LIST changes: +LABE100T4 PO; -LABE10TAB PO
--- NOTE | 2020-05-01 19:29 | SLEEPHOME ---
DIAGNOSTIC HOME SLEEP STUDY DATE: 04/30/2020 ORDERED BY: Monse Denise MD Diagnostic home sleep testing was performed due to concern for the obstructive sleep apnea syndrome in this patient with a history of excessive somnolence, morning headaches, and nonrestorative sleep. For testing, a nocturnal T3 respiratory monitoring device was used. Continuous record was made of pulse, oxygen saturation, air flow, chest and abdominal strain, and body position. 8 hours and 48 minutes of data were reviewed. There were 7 hours and 4 minutes marked as time in bed. During the interval marked time in bed, there were 67 respiratory events identified of 10 seconds in duration or greater for a respiratory event index of 9.5. The events were primarily obstructive. Six mixed and central apneas were seen. Baseline pulse rate was 71 beats per minute. Pulse rate range 53 to 101. Baseline saturation was 92%. Saturations were seen to fall to 85% and testing was performed in both the supine and non-supine positions. IMPRESSION: Abnormal home sleep testing with repetitive respiratory events and oxygen desaturations to 85% with a respiratory event index of 9.5 is consistent with the obstructive sleep apnea syndrome. RECOMMENDATION: The patient should be encouraged to undergo a formal sleep evaluation.
== END ==
LOC: M SLEEP HO 11:03
PROVIDERS: ATTEND Internal Medicine Pulmonary Disease
DX: G47.30 Sleep apnea, unspecified (principal)

== ENCOUNTER → 2020-05-27 | Outpatient (CLI) | payer OTHER ==
--- NOTE | 2020-05-29 11:19 | SLEEPCENT ---
NOCTURNAL POLYSOMNOGRAPHY CPAP TITRATION DATE: 05/27/2020 ORDERED BY: Monse Denise MD Nocturnal polysomnography was performed for the titration of pressure therapy in this patient with a clinical diagnosis of obstructive sleep apnea syndrome, confirmed by home testing, revealing respiratory event index of 9.5. For testing a ResMed AirFit F20 full face mask of large size was used, 4 cm of water pressure were applied to the circuit, and the lights were extinguished. 7 hours and 47 minutes of data were reviewed. There were 386 minutes of sleep identified. Sleep latency was mildly prolonged at 29.5 minutes. REM latency also mildly prolonged at 117 minutes. Sleep architecture was good with three REM cycles noted. Overall sleep efficiency was 83.7%. The electrocardiogram showed a sinus rhythm with an average heart rate of 56 beats per minute. EEG showed normal waveforms for wake and sleep. Respiratory events were fully palliated with CPAP at a pressure of +8 and remaining measures of sleep physiology were normal. IMPRESSION: Obstructive sleep apnea syndrome (G47.33). RECOMMENDATION: Nightly use of pressure therapy 8 cm of water.
== END ==
LOC: M SLEEP 20:00
PROVIDERS: ATTEND Internal Medicine Pulmonary Disease
DX: G47.33 Obstructive sleep apnea (adult) (pediatric) (principal)

== ENCOUNTER 2020-07-27 20:15 | Emergency (ER) | payer OTHER ==
[~2020-07-27] VITALS: Ht 185.4 cm; Wt 121.0 kg
[2020-07-27] MEDS ORDERED: PROP10TA56 PO (20:33)
[2020-07-27] MEDS ORDERED: OXAZ30CA2 PO (21:42)
[2020-07-27 22:08] VITALS: BP 138/92
== END 2020-07-27 22:57 | disposition home or self-care (01) ==
LOC: M ED 20:15
DX: F10.120 Alcohol abuse with intoxication, uncomplicated (principal); Z79.899 Other long term (current) drug therapy; Z91.041 Radiographic dye allergy status

== ENCOUNTER 2021-12-03 21:10 | Emergency (ER) | payer OTHER ==
[~2021-12-03] VITALS: Ht 188 cm; Wt 126.0 kg
[~2021-12-03 21:10] MED LIST changes: -LABE100T4 PO; +LABE100T6 PO; -OMEP-221 PO; +OMEP40CA5 PO; +OXAZ30CA2 PO
[2021-12-03 21:12] VITALS: BP 130/74
[2021-12-03 21:43] VITALS: O2SAT 96
[2021-12-03] MEDS ORDERED: LANS30CA PO (22:34)
[2021-12-03] MEDS ORDERED: ZOLO100T PO (22:34)
[2021-12-03] MEDS ORDERED: IBUP-1720 PO (22:34)
[2021-12-03] MEDS ORDERED: ARNU1INH3 INH (22:34)
[2021-12-03] MEDS ORDERED: COMBAER6 INH (22:34)
[2021-12-03] MEDS ORDERED: HOME MED LIST COMPLETE! XX SCH (22:35)
[2021-12-04] MEDS ORDERED: NIRMATRELVIR/RITONAVIR CO-PACK (EMERGENCY USE AUTH) PO SCH ×2 (09:00)
== END 2021-12-03 23:31 | disposition left against medical advice (07) ==
LOC: M ED 21:10
DX: U07.1 COVID-19 (principal); F41.9 Anxiety disorder, unspecified; F32.A Depression, unspecified; F43.10 Post-traumatic stress disorder, unspecified; Z91.048 Other nonmedicinal substance allergy status; Z88.2 Allergy status to sulfonamides; Z79.51 Long term (current) use of inhaled steroids; Z79.899 Other long term (current) drug therapy; Z53.21 Procedure and treatment not carried out due to patient leaving prior to being seen by health care provider

== ENCOUNTER → 2022-01-29 | Outpatient (REF) | payer OTHER ==
[~2022-01-29] MED LIST changes: +ARNU1INH3 INH; +COMBAER6 INH; +IBUP-1720 PO; +LANS30CA PO
[2022-01-29 19:41] LABS: HEMATOCRIT 45.1 % (42.0-52.0); HEMOGLOBIN 15.4 g/dl (13.5-17.5); MEAN CORPUSCULAR HEMOGLOBIN 31.2 pg (27.0-33.0); MEAN CORPUSCULAR HGB CONC 34.1 g/dl (32.0-36.5); MEAN CORPUSCULAR VOLUME 91.3 fl (80.0-96.0); PLATELET COUNT, AUTOMATED 149 10^3/uL (150-450); RED BLOOD COUNT 4.94 10^6/uL (4.30-6.10); WHITE BLOOD COUNT 6.2 10^3/uL (4.0-10.0)
[2022-01-29 20:21] LABS: ALBUMIN 4.2 GM/DL (3.2-5.2); ALT/SGPT 39 U/L (12-78); BLOOD UREA NITROGEN 17 MG/DL (7-18); CALCIUM LEVEL 9.2 MG/DL (8.5-10.1); CARBON DIOXIDE LEVEL 28 MEQ/L (21-32); CHLORIDE LEVEL 105 MEQ/L (98-107); CHOLESTEROL LEVEL 257 MG/DL (<200); CHOLESTEROL RISK RATIO 3.294 (<5); CREATININE FOR GFR 0.95 MG/DL (0.70-1.30); GLOMERULAR FILTRATION RATE > 60.0 (>60); GLUCOSE, FASTING 126 MG/DL (70-100); HDL CHOLESTEROL 78 MG/DL (>40); LDL CHOLESTEROL 144 MG/DL (<100); NON-HDL-C 179 MG/DL; SODIUM LEVEL 138 MEQ/L (136-145); TOTAL PROTEIN 7.4 GM/DL (6.4-8.2); TRIGLYCERIDES LEVEL 175 MG/DL (<150)
== END ==
LOC: M SFHCCLAY 11:25
PROVIDERS: ATTEND Nurse Practitioner Family
DX: R73.03 Prediabetes (principal); K21.9 Gastro-esophageal reflux disease without esophagitis; F41.9 Anxiety disorder, unspecified; K76.0 Fatty (change of) liver, not elsewhere classified; F10.11 Alcohol abuse, in remission; D86.9 Sarcoidosis, unspecified; F32.9 Major depressive disorder, single episode, unspecified

== ENCOUNTER 2022-03-30 03:15 | Emergency (ER) | payer OTHER ==
[~2022-03-30] VITALS: Ht 185.4 cm; Wt 124.7 kg
[2022-03-30] MEDS ORDERED: LIDOCAINE W/EPINEPHRINE 1% 20ML VIAL SC ONE (07:00)
[2022-03-30] MEDS ORDERED: FOLI1TAB11 (07:09)
[2022-03-30] MEDS ORDERED: METH2.5T48 (07:09)
[2022-03-30] MEDS ORDERED: IBUPROFEN 800 MG TAB PO ONE (07:15)
[2022-03-30 08:16] VITALS: BP 117/62
== END 2022-03-30 08:32 | disposition home or self-care (01) ==
LOC: M ED 03:15
DX: S01.01XA Laceration without foreign body of scalp, initial encounter (principal); S16.1XXA Strain of muscle, fascia and tendon at neck level, initial encounter; W26.8XXA Contact with other sharp object(s), not elsewhere classified, initial encounter; I10 Essential (primary) hypertension; K21.9 Gastro-esophageal reflux disease without esophagitis; F43.10 Post-traumatic stress disorder, unspecified; F32.A Depression, unspecified; Z91.041 Radiographic dye allergy status; Z79.1 Long term (current) use of non-steroidal anti-inflammatories (NSAID); Z79.631 Long term (current) use of antimetabolite agent; Z79.899 Other long term (current) drug therapy; Z79.52 Long term (current) use of systemic steroids

== ENCOUNTER 2022-04-10 14:31 | Inpatient (IN) | payer OTHER ==
[~2022-04-10] VITALS: Ht 185.4 cm; Wt 117.8 kg
[~2022-04-10 14:31] MED LIST changes: +DIPH-435 PO; -DIPH25CA32 PO; +FOLI1TAB11 PO; +METH2.5T48 PO
[2022-04-10 16:04] LABS: BASO % 0.4 % (0.0-1.0); EOS # 0.1 10^3/uL (0.0-0.5); EOS % 1.2 % (0.0-3.0); HEMATOCRIT 37.6 % (42.0-52.0); HEMOGLOBIN 12.4 g/dl (13.5-17.5); LYMPH # 0.5 10^3/uL (1.5-5.0); LYMPH % 5.5 % (24.0-44.0); MEAN CORPUSCULAR HEMOGLOBIN 28.2 pg (27.0-33.0); MEAN CORPUSCULAR VOLUME 85.5 fl (80.0-96.0); MONO # 0.7 10^3/uL (0.0-0.8); MONO % 8.4 % (2.0-8.0); NEUTROPHILS # 6.8 10^3/uL (1.5-8.5); NEUTROPHILS % 81.6 % (36.0-66.0); PLATELET COUNT, AUTOMATED 405 10^3/uL (150-450); WHITE BLOOD COUNT 8.4 10^3/uL (4.0-10.0)
[2022-04-10 16:22] LABS: ALBUMIN 3.3 G/DL (3.2-5.2); ALKALINE PHOSPHATASE 95 U/L (46-116); ALT/SGPT 63 U/L (7.0-40); AST/SGOT 47 U/L (<34); BILIRUBIN,DIRECT 0.4 MG/DL (<0.4); BLOOD UREA NITROGEN 16 MG/DL (9-23); CALCIUM LEVEL 9.6 MG/DL (8.5-10.1); CARBON DIOXIDE LEVEL 23 MMOL/L (20-31); CHLORIDE LEVEL 100 MMOL/L (98-107); CREATININE FOR GFR 0.75 MG/DL (0.70-1.30); GLOMERULAR FILTRATION RATE > 60.0 (>60); GLUCOSE, FASTING 94 MG/DL (60-100); POTASSIUM SERUM 3.5 MMOL/L (3.5-5.1); SODIUM LEVEL 139 MMOL/L (136-145); TOTAL PROTEIN 7.1 G/DL (5.7-8.2)
[2022-04-10] MEDS ORDERED: MEROPENEM INJ 2 GM in NS 100 ML IV ONE (17:30)
[2022-04-10] MEDS ORDERED: MEROPENEM INJ 1 GM in IV 1 EA IV ONE ×2 (18:00→18:30)
[2022-04-10] MEDS ORDERED: BACTDSTA PO (18:28)
[2022-04-10] MEDS ORDERED: B-1100TA2 PO (18:28)
[2022-04-10] MEDS ORDERED: LEVO1TAB39 PO (18:28)
[2022-04-10] MEDS ORDERED: HOME MED LIST COMPLETE! XX SCH (18:30)
[2022-04-10] MEDS ORDERED: IPRATROPIUM 0.5MG/ALBUTEROL 2.5MG INH SOL UD 3ML (DUONEB) NEB PRN (20:40)
[2022-04-10] MEDS ORDERED: VANCOMYCIN HCL 1,000 MG, VIAL MATE ADAPTER 1 EACH in NS 250 ML IV ONE (21:00)
[2022-04-10] MEDS ORDERED: SODIUM CHLORIDE HYPERTONIC 3% 15ML NEB SOL INH ONE (21:00)
[2022-04-10] MEDS: LABETALOL 100MG TAB PO SCH (21:22)
[2022-04-10] MEDS: FOLIC ACID 1MG TAB PO SCH (21:23)
[2022-04-10] MEDS: IBUPROFEN 800 MG TAB PO PRN (21:45)
[2022-04-10] MEDS ORDERED: ENOXAPARIN 40MG/0.4ML SYRINGE (J1650 PER 10MG) SC ONE (21:50)
[2022-04-10] MEDS: VANCOMYCIN HCL 1,000 MG, VIAL MATE ADAPTER 1 EACH in NS 250 ML IV SCH (22:31)
[2022-04-10 22:59] VITALS: BP 134/76
[2022-04-11] MEDS ORDERED: MEROPENEM INJ 2 GM in NS 100 ML IV SCH (02:00)
[2022-04-11] MEDS: MEROPENEM INJ 1 GM in IV 1 EA IV SCH ×4 (03:07→11:24)
[2022-04-11 03:12] VITALS: BP 131/77
[2022-04-11] MEDS: VANCOMYCIN HCL 1,000 MG, VIAL MATE ADAPTER 1 EACH in NS 250 ML IV SCH ×2 (05:03→13:27)
[2022-04-11] MEDS: IBUPROFEN 800 MG TAB PO PRN ×2 (06:10→17:38)
[2022-04-11 06:32] LABS: BASO % 0.4 % (0.0-1.0); EOS # 0.1 10^3/uL (0.0-0.5); EOS % 1.2 % (0.0-3.0); HEMATOCRIT 33.5 % (42.0-52.0); HEMOGLOBIN 11.1 g/dl (13.5-17.5); LYMPH # 0.6 10^3/uL (1.5-5.0); LYMPH % 7.4 % (24.0-44.0); MEAN CORPUSCULAR HEMOGLOBIN 28.1 pg (27.0-33.0); MEAN CORPUSCULAR HGB CONC 33.1 g/dl (32.0-36.5); MEAN CORPUSCULAR VOLUME 84.8 fl (80.0-96.0); MONO # 0.9 10^3/uL (0.0-0.8); MONO % 10.4 % (2.0-8.0); NEUTROPHILS # 6.6 10^3/uL (1.5-8.5); NEUTROPHILS % 77.9 % (36.0-66.0); PLATELET COUNT, AUTOMATED 350 10^3/uL (150-450); RED BLOOD COUNT 3.95 10^6/uL (4.30-6.10); WHITE BLOOD COUNT 8.5 10^3/uL (4.0-10.0)
[2022-04-11 06:57] LABS: BLOOD UREA NITROGEN 14 MG/DL (9-23); CALCIUM LEVEL 8.8 MG/DL (8.5-10.1); CARBON DIOXIDE LEVEL 27 MMOL/L (20-31); CHLORIDE LEVEL 100 MMOL/L (98-107); GLOMERULAR FILTRATION RATE > 60.0 (>60); GLUCOSE, FASTING 132 MG/DL (60-100); POTASSIUM SERUM 3.6 MMOL/L (3.5-5.1); SODIUM LEVEL 137 MMOL/L (136-145)
[2022-04-11] MEDS: IPRATROPIUM 0.5MG/ALBUTEROL 2.5MG INH SOL UD 3ML (DUONEB) NEB SCH ×4 (07:40→20:04)
[2022-04-11 08:00] VITALS: BP 122/69
[2022-04-11] MEDS: LABETALOL 100MG TAB PO SCH ×2 (08:18→21:00)
[2022-04-11] MEDS: LACTOBACILLUS ACIDOPHILUS CAP (BACID) PO SCH ×3 (08:21→17:38)
[2022-04-11] MEDS: THIAMINE 100 MG TAB PO SCH (08:21)
[2022-04-11] MEDS: ENOXAPARIN 40MG/0.4ML SYRINGE (J1650 PER 10MG) SC SCH (08:21)
[2022-04-11] MEDS: SERTRALINE HCL 50 MG TAB PO SCH (08:21)
[2022-04-11] MEDS ORDERED: GI COCKTAIL 50ML BTL(HYOSCYAMINE/MAALOX/LIDOCAINE VISCOUS)(1:3:1) PO ONE (08:30)
[2022-04-11] MEDS ORDERED: GI COCKTAIL 50ML BTL(HYOSCYAMINE/MAALOX/LIDOCAINE VISCOUS)(1:3:1) PO PRN (08:30)
[2022-04-11] MEDS ORDERED: AMOX875T2 PO (08:34)
[2022-04-11] MEDS ORDERED: BACI1CAP PO (08:34)
[2022-04-11 08:53] LABS: ERYTHROCYTE SEDIMENTATION RATE 94 mm/hr (0-15)
[2022-04-11] MEDS: PANTOPRAZOLE 40MG TAB (PROTONIX) PO SCH (08:53)
[2022-04-11] MEDS ORDERED: AUGMENTIN 500MG TAB PO SCH (14:45)
[2022-04-11] MEDS: AMPICILLIN SOD/SULBACTAM SOD 3 GM in D5W MINI-BAG PLUS 100 ML IV SCH ×2 (15:26→22:12)
[2022-04-11 15:34] VITALS: BP 135/78
[2022-04-11 16:25] VITALS: BP 108/80
[2022-04-11] MEDS ORDERED: VANCOMYCIN HCL 1,000 MG, VIAL MATE ADAPTER 1 EACH in NS 250 ML IV SCH (18:00)
[2022-04-11] MEDS ORDERED: ACETAMINOPHEN TAB 650MG DOSE (2X325MG) PO PRN (19:00)
[2022-04-11] MEDS: ACETAMINOPHEN TAB 650MG DOSE (2X325MG) PO PRN (19:39)
[2022-04-11 20:00] VITALS: BP 115/72
[2022-04-11] MEDS: FOLIC ACID 1MG TAB PO SCH (22:12)
[2022-04-11] MEDS: BENZONATATE 100MG CAPSULE PO SCH (22:12)
[2022-04-11] MEDS: RAMELTEON 8 MG TAB (ROZEREM) PO PRN (22:12)
[2022-04-12] MEDS: AMPICILLIN SOD/SULBACTAM SOD 3 GM in D5W MINI-BAG PLUS 100 ML IV SCH ×4 (04:37→21:03)
[2022-04-12] MEDS: ACETAMINOPHEN TAB 650MG DOSE (2X325MG) PO PRN ×3 (05:13→21:05)
[2022-04-12 06:00] VITALS: BP 112/70
[2022-04-12 06:21] LABS: BASO % 0.3 % (0.0-1.0); EOS # 0.1 10^3/uL (0.0-0.5); EOS % 1.4 % (0.0-3.0); HEMATOCRIT 34.6 % (42.0-52.0); HEMOGLOBIN 11.3 g/dl (13.5-17.5); LYMPH # 0.5 10^3/uL (1.5-5.0); LYMPH % 6.8 % (24.0-44.0); MEAN CORPUSCULAR HEMOGLOBIN 28.3 pg (27.0-33.0); MEAN CORPUSCULAR HGB CONC 32.7 g/dl (32.0-36.5); MEAN CORPUSCULAR VOLUME 86.5 fl (80.0-96.0); MONO # 0.6 10^3/uL (0.0-0.8); MONO % 7.9 % (2.0-8.0); NEUTROPHILS # 5.9 10^3/uL (1.5-8.5); PLATELET COUNT, AUTOMATED 340 10^3/uL (150-450); WHITE BLOOD COUNT 7.3 10^3/uL (4.0-10.0)
[2022-04-12 06:35] LABS: BLOOD UREA NITROGEN 10 MG/DL (9-23); CALCIUM LEVEL 8.9 MG/DL (8.5-10.1); CARBON DIOXIDE LEVEL 29 MMOL/L (20-31); CHLORIDE LEVEL 101 MMOL/L (98-107); CREATININE FOR GFR 0.65 MG/DL (0.70-1.30); GLOMERULAR FILTRATION RATE > 60.0 (>60); GLUCOSE, FASTING 125 MG/DL (60-100); POTASSIUM SERUM 3.8 MMOL/L (3.5-5.1); SODIUM LEVEL 140 MMOL/L (136-145)
[2022-04-12] MEDS: IPRATROPIUM 0.5MG/ALBUTEROL 2.5MG INH SOL UD 3ML (DUONEB) NEB SCH ×4 (07:12→20:20)
[2022-04-12] MEDS: PANTOPRAZOLE 40MG TAB (PROTONIX) PO SCH (08:51)
[2022-04-12] MEDS: THIAMINE 100 MG TAB PO SCH (08:52)
[2022-04-12] MEDS: LACTOBACILLUS ACIDOPHILUS CAP (BACID) PO SCH ×3 (08:52→17:05)
[2022-04-12] MEDS: ENOXAPARIN 40MG/0.4ML SYRINGE (J1650 PER 10MG) SC SCH (08:52)
[2022-04-12] MEDS: SERTRALINE HCL 50 MG TAB PO SCH (08:52)
[2022-04-12] MEDS: BENZONATATE 100MG CAPSULE PO SCH ×3 (08:52→21:04)
[2022-04-12] MEDS: LABETALOL 100MG TAB PO SCH ×2 (08:53→21:00)
[2022-04-12 14:00] VITALS: BP 116/75
[2022-04-12] MEDS ORDERED: BENZONATATE 100MG CAPSULE PO ONE ×2 (17:30→17:35)
[2022-04-12] MEDS: IBUPROFEN 800 MG TAB PO PRN (18:05)
[2022-04-12] MEDS: RAMELTEON 8 MG TAB (ROZEREM) PO PRN (21:03)
[2022-04-12] MEDS: FOLIC ACID 1MG TAB PO SCH (21:04)
[2022-04-12] MEDS: guaiFENesin ER 600 MG TAB PO SCH (21:04)
[2022-04-12 22:00] VITALS: BP 114/76
[2022-04-13] MEDS: AMPICILLIN SOD/SULBACTAM SOD 3 GM in D5W MINI-BAG PLUS 100 ML IV SCH ×4 (03:44→21:05)
[2022-04-13 06:00] VITALS: BP 116/77
[2022-04-13 06:02] LABS: BASO # 0.1 10^3/uL (0.0-0.2); BASO % 0.6 % (0.0-1.0); EOS # 0.2 10^3/uL (0.0-0.5); EOS % 1.9 % (0.0-3.0); HEMATOCRIT 34.7 % (42.0-52.0); HEMOGLOBIN 11.4 g/dl (13.5-17.5); LYMPH # 0.5 10^3/uL (1.5-5.0); LYMPH % 6.8 % (24.0-44.0); MEAN CORPUSCULAR HEMOGLOBIN 27.9 pg (27.0-33.0); MEAN CORPUSCULAR HGB CONC 32.9 g/dl (32.0-36.5); MONO # 0.7 10^3/uL (0.0-0.8); MONO % 8.9 % (2.0-8.0); NEUTROPHILS # 6.1 10^3/uL (1.5-8.5); NEUTROPHILS % 78.2 % (36.0-66.0); PLATELET COUNT, AUTOMATED 371 10^3/uL (150-450); RED BLOOD COUNT 4.08 10^6/uL (4.30-6.10); WHITE BLOOD COUNT 7.8 10^3/uL (4.0-10.0)
[2022-04-13] MEDS: BENZONATATE 100MG CAPSULE PO SCH ×3 (06:05→21:07)
[2022-04-13] MEDS: ACETAMINOPHEN TAB 650MG DOSE (2X325MG) PO PRN (06:06)
[2022-04-13 06:25] LABS: BLOOD UREA NITROGEN 7 MG/DL (9-23); CARBON DIOXIDE LEVEL 31 MMOL/L (20-31); CHLORIDE LEVEL 103 MMOL/L (98-107); CREATININE FOR GFR 0.67 MG/DL (0.70-1.30); GLOMERULAR FILTRATION RATE > 60.0 (>60); GLUCOSE, FASTING 125 MG/DL (60-100); SODIUM LEVEL 142 MMOL/L (136-145)
[2022-04-13] MEDS: IPRATROPIUM 0.5MG/ALBUTEROL 2.5MG INH SOL UD 3ML (DUONEB) NEB SCH ×4 (07:21→18:07)
[2022-04-13] MEDS: LABETALOL 100MG TAB PO SCH ×2 (09:00→19:58)
[2022-04-13] MEDS: PANTOPRAZOLE 40MG TAB (PROTONIX) PO SCH (09:58)
[2022-04-13] MEDS: LACTOBACILLUS ACIDOPHILUS CAP (BACID) PO SCH ×3 (09:58→18:25)
[2022-04-13] MEDS: THIAMINE 100 MG TAB PO SCH (09:58)
[2022-04-13] MEDS: SERTRALINE HCL 50 MG TAB PO SCH (09:58)
[2022-04-13] MEDS: guaiFENesin ER 600 MG TAB PO SCH ×2 (09:58→21:07)
[2022-04-13] MEDS: ENOXAPARIN 40MG/0.4ML SYRINGE (J1650 PER 10MG) SC SCH (09:59)
[2022-04-13 14:00] VITALS: BP 118/80
[2022-04-13] MEDS ORDERED: INFLUENZA QUADRIVALENT PF VACCINE 0.5ML SYRINGE IM ONE (19:40)
[2022-04-13 20:00] VITALS: BP 119/70
[2022-04-13] MEDS: RAMELTEON 8 MG TAB (ROZEREM) PO PRN (21:06)
[2022-04-13] MEDS: FOLIC ACID 1MG TAB PO SCH (21:07)
[2022-04-14] MEDS: AMPICILLIN SOD/SULBACTAM SOD 3 GM in D5W MINI-BAG PLUS 100 ML IV SCH ×2 (04:20→09:11)
[2022-04-14 05:29] LABS: BASO # 0.1 10^3/uL (0.0-0.2); BASO % 0.7 % (0.0-1.0); EOS # 0.1 10^3/uL (0.0-0.5); EOS % 1.7 % (0.0-3.0); HEMATOCRIT 34.1 % (42.0-52.0); HEMOGLOBIN 11.3 g/dl (13.5-17.5); LYMPH # 0.6 10^3/uL (1.5-5.0); MEAN CORPUSCULAR HEMOGLOBIN 28.2 pg (27.0-33.0); MEAN CORPUSCULAR HGB CONC 33.1 g/dl (32.0-36.5); MONO # 0.6 10^3/uL (0.0-0.8); MONO % 7.6 % (2.0-8.0); NEUTROPHILS # 5.9 10^3/uL (1.5-8.5); NEUTROPHILS % 78.1 % (36.0-66.0); PLATELET COUNT, AUTOMATED 389 10^3/uL (150-450); RED BLOOD COUNT 4.01 10^6/uL (4.30-6.10); WHITE BLOOD COUNT 7.6 10^3/uL (4.0-10.0)
[2022-04-14] MEDS: BENZONATATE 100MG CAPSULE PO SCH ×3 (05:34→21:31)
[2022-04-14 05:40] VITALS: BP 116/76
[2022-04-14 05:53] LABS: BLOOD UREA NITROGEN 8 MG/DL (9-23); CALCIUM LEVEL 8.8 MG/DL (8.5-10.1); CARBON DIOXIDE LEVEL 28 MMOL/L (20-31); CHLORIDE LEVEL 103 MMOL/L (98-107); CREATININE FOR GFR 0.66 MG/DL (0.70-1.30); GLOMERULAR FILTRATION RATE > 60.0 (>60); GLUCOSE, FASTING 127 MG/DL (60-100); POTASSIUM SERUM 4.2 MMOL/L (3.5-5.1); SODIUM LEVEL 139 MMOL/L (136-145)
[2022-04-14] MEDS: IPRATROPIUM 0.5MG/ALBUTEROL 2.5MG INH SOL UD 3ML (DUONEB) NEB SCH ×4 (07:43→19:50)
[2022-04-14] MEDS: LABETALOL 100MG TAB PO SCH ×2 (09:00→21:00)
[2022-04-14] MEDS: guaiFENesin ER 600 MG TAB PO SCH ×2 (09:11→21:31)
[2022-04-14] MEDS: ENOXAPARIN 40MG/0.4ML SYRINGE (J1650 PER 10MG) SC SCH (09:11)
[2022-04-14] MEDS: PANTOPRAZOLE 40MG TAB (PROTONIX) PO SCH (09:11)
[2022-04-14] MEDS: THIAMINE 100 MG TAB PO SCH (09:11)
[2022-04-14] MEDS: LACTOBACILLUS ACIDOPHILUS CAP (BACID) PO SCH ×3 (09:11→17:49)
[2022-04-14] MEDS: SERTRALINE HCL 50 MG TAB PO SCH (09:12)
[2022-04-14] MEDS: AUGMENTIN 875 MG TAB PO SCH ×2 (11:12→21:31)
[2022-04-14 14:19] VITALS: BP 120/75
[2022-04-14 20:00] VITALS: BP 112/70
[2022-04-14] MEDS: FOLIC ACID 1MG TAB PO SCH (21:32)
[2022-04-15 06:00] VITALS: BP 111/74
[2022-04-15] MEDS: BENZONATATE 100MG CAPSULE PO SCH (06:13)
[2022-04-15] MEDS ORDERED: BACI1CAP PO (07:01)
[2022-04-15] MEDS ORDERED: AMOX875T2 PO (07:01)
[2022-04-15] MEDS: IPRATROPIUM 0.5MG/ALBUTEROL 2.5MG INH SOL UD 3ML (DUONEB) NEB SCH ×2 (07:16→12:00)
[2022-04-15] MEDS: LACTOBACILLUS ACIDOPHILUS CAP (BACID) PO SCH (08:14)
[2022-04-15] MEDS: THIAMINE 100 MG TAB PO SCH (08:14)
[2022-04-15] MEDS: AUGMENTIN 875 MG TAB PO SCH (08:14)
[2022-04-15] MEDS: guaiFENesin ER 600 MG TAB PO SCH (08:14)
[2022-04-15] MEDS: PANTOPRAZOLE 40MG TAB (PROTONIX) PO SCH (08:14)
[2022-04-15] MEDS: SERTRALINE HCL 50 MG TAB PO SCH (08:14)
[2022-04-15 08:15] VITALS: BP 115/80
[2022-04-15] MEDS: LABETALOL 100MG TAB PO SCH (08:15)
[2022-04-15] MEDS: ENOXAPARIN 40MG/0.4ML SYRINGE (J1650 PER 10MG) SC SCH (08:15)
[2022-04-15] MEDS ORDERED: ALBU2.5V10 NEB (11:19)
[2022-04-18 03:07] LABS: ASPERGILLUS FLAVUS ABY Negative (Neg:<1:1); ASPERGILLUS FUMIGATUS ABY Negative (Neg:<1:1); ASPERGILLUS GALACTOMANNAN AG 0.04 Index (0.00-0.49); ASPERGILLUS NIGER ABY Negative (Neg:<1:1); FUNGITELL, SERUM <31 pg/mL (<80); M003-IGE ASPERGILLUS fumigatus <0.10 kU/L (Class 0)
== END 2022-04-15 12:20 | disposition home or self-care (01) | DRG 137 ==
LOC: M ED 14:31 → M ED INP 17:42 → M MSPAV 04-11 16:23
PROVIDERS: ADMIT General Practice; ATTEND Internal Medicine Nephrology
DX: J85.1 Abscess of lung with pneumonia (principal); I10 Essential (primary) hypertension; K76.0 Fatty (change of) liver, not elsewhere classified; D86.0 Sarcoidosis of lung; J45.909 Unspecified asthma, uncomplicated; K21.9 Gastro-esophageal reflux disease without esophagitis; F41.9 Anxiety disorder, unspecified; F43.10 Post-traumatic stress disorder, unspecified; G47.33 Obstructive sleep apnea (adult) (pediatric); F17.220 Nicotine dependence, chewing tobacco, uncomplicated; F10.10 Alcohol abuse, uncomplicated; Z79.899 Other long term (current) drug therapy; Z88.8 Allergy status to other drugs, medicaments and biological substances

== ENCOUNTER → 2022-06-18 | Outpatient (REF) | payer OTHER ==
[~2022-06-18] MED LIST changes: +ALBU2.5V10 NEB; +AMOX875T2 PO; +B-1100TA2 PO; +BACI1CAP PO; +BACTDSTA PO; +LEVO1TAB39 PO
== END ==
LOC: M SFHCCLAY 14:57
PROVIDERS: ATTEND Nurse Practitioner Family
DX: R35.0 Frequency of micturition (principal)

== ENCOUNTER → 2023-06-02 | Outpatient (REF) | payer OTHER | LOC: M SFHCCLAY 14:17 | PROVIDERS: ATTEND Nurse Practitioner Family | DX: R31.9 Hematuria, unspecified (principal) ==

== ENCOUNTER → 2024-03-15 | Outpatient (CLI) | payer MEDICAID ==
[~2024-03-15] MED LIST changes: -CYCL5TAB PO; +CYCL5TAB4 PO
== END ==
LOC: M OUTALCOH 07:58
PROVIDERS: ATTEND Psychiatry & Neurology Psychiatry
DX: Z03.89 Encounter for observation for other suspected diseases and conditions ruled out (principal); F17.200 Nicotine dependence, unspecified, uncomplicated

== ENCOUNTER → 2024-03-22 | Outpatient (REF) | payer OTHER ==
[2024-03-22 17:25] LABS: HEMOGLOBIN A1c 4.6 % (4.0-6.0)
[2024-03-22 17:43] LABS: FREE T4 0.87 NG/DL (0.89-1.76)
[2024-03-22 17:44] LABS: THYROID STIMULATING HORMONE 2.293 uIU/ML (0.55-4.78)
[2024-03-22 17:46] LABS: ALBUMIN 4.2 G/DL (3.2-5.2); ALKALINE PHOSPHATASE 51 U/L (40-129); ALT/SGPT 34 U/L (7.0-40); AST/SGOT 22 U/L (<34); BILIRUBIN,TOTAL 1.8 MG/DL (0.3-1.2); BLOOD UREA NITROGEN 18 MG/DL (9-23); CALCIUM LEVEL 9.7 MG/DL (8.5-10.1); CARBON DIOXIDE LEVEL 26 MMOL/L (20-31); CHLORIDE LEVEL 107 MMOL/L (98-107); CHOLESTEROL LEVEL 174 MG/DL (<200); CHOLESTEROL RISK RATIO 4.25 (<5); CREATININE FOR GFR 0.92 MG/DL (0.70-1.30); GLOMERULAR FILTRATION RATE > 60.0 (>60); GLUCOSE, FASTING 101 MG/DL (60-100); HDL CHOLESTEROL 40.9 MG/DL (>40); LDL CHOLESTEROL 107.3 MG/DL (<100); NON-HDL-C 133.1 MG/DL; POTASSIUM SERUM 4.1 MMOL/L (3.5-5.1); SODIUM LEVEL 142 MMOL/L (136-145); TOTAL PROTEIN 6.9 G/DL (5.7-8.2); TRIGLYCERIDES LEVEL 129 MG/DL (<150)
== END ==
LOC: M SFHCCLAY 11:26
PROVIDERS: ATTEND Nurse Practitioner Family
DX: K21.9 Gastro-esophageal reflux disease without esophagitis (principal); D86.9 Sarcoidosis, unspecified; F32.9 Major depressive disorder, single episode, unspecified; R73.03 Prediabetes